=== PATIENT | female | born 1955 | race Caucasian/White ===

== ENCOUNTER 2019-11-21 07:08 | Outpatient (CLI) | payer MEDICARE, SELFPAY ==
--- NOTE | ~2019-11-21 | MM_ITS ---
EXAMINATION: MM screening ady BI w tiara HISTORY: Screening TECHNIQUE: Craniocaudal and mediolateral oblique 3-D tomosynthesis images were obtained and synthetic 2-D images were generated. CAD analysis was submitted and interpreted. COMPARISON: Comparison to multiple prior studies sequentially, with oldest reviewed study dated 01/14. BREAST PARENCHYMAL COMPOSITION: The breasts are heterogeneously dense, which may obscure small masses . FINDINGS: There is no evidence of suspicious mass, calcification, or architectural distortion to sugg est malignancy in either breast. There has been no suspicious interval change. IMPRESSION: 1. No mammographic evidence of malignancy. 2. Recommend routine screening mammography in one year. BI-RADS Category 1: Negative Reviewed, dictated and finalized at location A.
== END 2019-11-21 07:09 | disposition home or self-care (01) ==
LOC: ANHIMG 07:12
PROVIDERS: PCP Internal Medicine; Visit Provider Obstetrics & Gynecology
DX: Z12.31 Encounter for screening mammogram for malignant neoplasm of breast (principal)
CPT/HCPCS: 77063; 77067

== ENCOUNTER 2020-11-26 07:18 | Outpatient (CLI) | payer MEDICARE, SELFPAY ==
--- NOTE | ~2020-11-26 | MM_ITS ---
EXAMINATION: MM screening ady BI w tiara HISTORY: Screening TECHNIQUE: Craniocaudal and mediolateral oblique 3-D tomosynthesis images were obtained and synthetic 2-D images were generated. CAD analysis was submitted and interpreted. COMPARISON: Comparison to multiple prior studies sequentially, with oldest reviewed study dated 12/2016. BREAST PARENCHYMAL COMPOSITION: The breasts are heterogeneously dense, which may obscure small masses . FINDINGS: The left breast is stable without evidence for malignancy. There is a developing asymmetry lateral aspect of the right breast, middle third, on CC view. IMPRESSION: 1. Developing right breast asymmetry lateral aspect of the right breast on CC view. 2. Additional mammographic views and possible breast ultrasound are recommended. BI-RADS Category 0: Incomplete: Needs additional imaging evaluation. Reviewed, dictated and finalized at location A. IMPRESSION: 1. Developing right breast asymmetry lateral aspect of the right breast on CC v iew. 2. Additional mammographic views and possible breast ultrasound are recommended . BI-RADS Category 0: Incomplete: Needs additional imaging evaluation.
== END 2020-11-26 07:19 | disposition home or self-care (01) ==
LOC: ANHIMG 07:21
PROVIDERS: PCP Internal Medicine; Visit Provider Obstetrics & Gynecology
DX: Z12.31 Encounter for screening mammogram for malignant neoplasm of breast (principal); R92.8 Other abnormal and inconclusive findings on diagnostic imaging of breast
CPT/HCPCS: 77063; 77067

== ENCOUNTER 2020-12-03 11:06 | Outpatient (CLI) | payer MEDICARE, SELFPAY ==
--- NOTE | ~2020-12-03 | MM_ITS ---
EXAMINATION: MM diagnostic mammo unilat RT HISTORY: Right breast asymmetry on screening mammogram TECHNIQUE: Additional 3-D tomosynthesis images of the right breast were performed and synthetic 2-D i mages were generated. CAD analysis was submitted and interpreted. COMPARISON: 11/26/2020, 11/21/2019,11/25/2018, 11/18/2018 FINDINGS: There is a return to baseline fibroglandular appearance with spot compression of the right breast in the area questioned on screening mammogram. IMPRESSION: 1. No mammographic evidence of malignancy. 2. Recommend routine screening mammography in one year. BI-RADS Category 1: Negative Reviewed, dictated and finalized at location A.
== END 2020-12-03 11:07 | disposition home or self-care (01) ==
PROVIDERS: PCP Internal Medicine; Visit Provider Obstetrics & Gynecology
DX: R92.8 Other abnormal and inconclusive findings on diagnostic imaging of breast (principal)
CPT/HCPCS: 77065

== ENCOUNTER 2021-02-07 08:43 | Outpatient (CLI) | payer MEDICARE, SELFPAY ==
--- NOTE | ~2021-02-07 | DEXA_ITS ---
Bone Density Report Name: Jessy Valle Age: 65 Sex: Female Ethnicity: White Date of : 1955 Indication: postmenopausal; Referring Provider: Leighton, Cornelio Pimentel Study: Bone densitometry was performed. Exam Date: February 07, 2021 Accession number: [id number] Bone Density: Region BMD T-score Z-score Classification AP Spine (L1-L4) 0.966 -0.7 1.1 Normal Femoral Neck (Left) 0.727 -1.1 0.5 Osteopenia Total Hip (Left) 0.877 -0.5 0.8 Normal Total Hip Bilateral Avg 0.859 -0.7 0.7 Normal Femoral Neck (Right) 0.714 -1.2 0.4 Osteopenia Total Hip (Right) 0.841 -0.8 0.5 Normal World Health Organization criteria for BMD impression classify patients as: Normal (T-score at or above -1.0), Osteopenia (T-score between -1.0 and -2.5), or Osteoporosis (T-score at or below -2.5). 10-year Fracture Risk(1): Major Osteoporotic Fracture 8.7% Hip Fracture 0.8% Reported Risk Factors: [place] (), Neck BMD=0.714, BMI=24.8 (1) FRAX(R) Version 3.08. Fracture probability calculated for an untreated patient. Fracture probability may be lower if the patient has received treatment. Clinical Information Provided by Patient: Patient maximum height was 62.5 Menopause Age: 49 Drinks caffeinated beverages Onset of menses at age 12 Number of children 2 Impression: The patient has low bone mass, based on the Right Femoral Neck T-score. The patient has an estimated ten-year risk of hip fracture of 0.8% and an estimated ten-year risk of major fracture of 8.7%, based on the WHO FRAX algorithm. Discussion: BONE DENSITY IS LOW AT ONE OR MORE SKELETAL SITES. This patient's lowest T-score is low at one or more skeletal sites. It meets the World Health Organization's (WHO) criteria for ?low bone mass? (T-score between -1.0 and -2.5). The patient's 10-year risk of fracture as calculated by FRAX is less than the threshold where pharmacological therapy is recommended by the National Osteoporosis Foundation (NOF). However, all treatment decisions require clinical judgment and consideration of individual patient factors, including patient preferences, comorbidities, previous drug use, risk factors not captured in the FRAX model (e.g., frailty, falls, vitamin D deficiency, increased bone turnover, interval significant decline in bone density) and possible under or overestimation of fracture risk by FRAX. The patient should follow a healthful lifestyle (good nutrition with adequate calcium and vitamin D, and appropriate weight-bearing exercise). Follow-Up: Consider repeating this study in 2 to 3 years to reassess this patient's status, or sooner if there is some new clinical indication. Reported by: REUBEN on 02/07/2021 9:16:00 AM. Reviewed, dictated and finalized at location A.
== END 2021-02-07 08:44 | disposition home or self-care (01) ==
LOC: ANHIMG 08:44
PROVIDERS: PCP Internal Medicine; Visit Provider Internal Medicine
DX: M81.0 Age-related osteoporosis without current pathological fracture (principal); M85.89 Other specified disorders of bone density and structure, multiple sites
CPT/HCPCS: 77080

== ENCOUNTER 2021-11-30 12:59 | Outpatient (CLI) | payer MEDICARE, SELFPAY ==
--- NOTE | ~2021-11-30 | MM_ITS ---
EXAMINATION: MM screening ady BI w tiara HISTORY: Screening mammogram TECHNIQUE: Craniocaudal and mediolateral oblique 3-D tomosynthesis images were obtained and synthetic 2-D images were generated. CAD analysis was submitted and interpreted. COMPARISON: 12/03/2020 diagnostic right mammogram 11/26/2020, 11/21/2019 bilateral screening mammogram examinations BREAST PARENCHYMAL COMPOSITION: The breasts are heterogeneously dense, which may obscure small masses . FINDINGS: Stable fibroglandular asymmetry. Biopsy marker on the left; history of prior benign left br east biopsy. There is no evidence of suspicious mass, calcification, or architectural distortion to s uggest malignancy in either breast. There has been no suspicious interval change. IMPRESSION: 1. No mammographic evidence of malignancy. 2. Recommend routine screening mammography in one year. BI-RADS Category 2: Benign finding(s). Reviewed, dictated and finalized at location A.
== END 2021-11-30 13:00 | disposition home or self-care (01) ==
PROVIDERS: PCP Internal Medicine; Visit Provider Obstetrics & Gynecology
DX: Z12.31 Encounter for screening mammogram for malignant neoplasm of breast (principal)
CPT/HCPCS: 77063; 77067

== ENCOUNTER 2023-03-13 09:08 | Outpatient (CLI) | payer MEDICARE, SELFPAY ==
--- NOTE | ~2023-03-13 | MM_ITS ---
EXAMINATION: MM screening ady BI w tiara HISTORY: Screening mammogram TECHNIQUE: Craniocaudal and mediolateral oblique 3-D tomosynthesis images were obtained and synthetic 2-D images were generated. CAD analysis was submitted and interpreted. COMPARISON: 11/30/2021 bilateral screening mammogram 12/03/2020 diagnostic right mammogram 11/26/2020, 11/21/2019 bilateral screening mammogram examinations BREAST PARENCHYMAL COMPOSITION: The breasts are heterogeneously dense, which may obscure small masses . FINDINGS: Biopsy marker, posterior upper outer left breast; history of prior benign left breast biops y. There is no evidence of suspicious mass, calcification, or architectural distortion to suggest mal ignancy in either breast. There has been no suspicious interval change. IMPRESSION: 1. No mammographic evidence of malignancy. 2. Recommend routine screening mammography in one year. BI-RADS Category 1: Negative Reviewed, dictated and finalized at location A. LOPER ADVISOR
== END 2023-03-13 09:09 | disposition home or self-care (01) ==
PROVIDERS: PCP Internal Medicine; Visit Provider Obstetrics & Gynecology
DX: Z12.31 Encounter for screening mammogram for malignant neoplasm of breast (principal)
CPT/HCPCS: 77063; 77067

== ENCOUNTER 2023-04-06 07:50 | Outpatient (CLI) | payer MEDICARE, SELFPAY | END 2023-04-06 07:51 | disposition home or self-care (01) | LOC: ANHAUDASC 07:51 | PROVIDERS: PCP Internal Medicine; Visit Provider Otolaryngology | DX: H90.3 Sensorineural hearing loss, bilateral (principal) | CPT/HCPCS: 92557; 92567 ==

== ENCOUNTER 2024-09-01 07:57 | Outpatient (CLI) | payer MEDICARE, SELFPAY ==
--- NOTE | ~2024-09-01 | DEXA_ITS ---
Bone Density Report Name: DOUGLAS BANSAL Age: 69 Sex: Female Ethnicity: White Date of : 1955 Indication: postmenopausal; screening for osteoporosis; Referring Provider: LOS*, KELLY Pimentel Study: Bone densitometry was performed. Exam Date: September 01, 2024 Accession number: [id number] Bone Density: Region BMD T-score Z-score Classification AP Spine(L1-L4) 0.961 -0.8 1.3 Normal Femoral Neck (Left) 0.723 -1.1 0.7 Osteopenia Total Hip (Left) 0.902 -0.3 1.2 Normal Femoral Neck (Right) 0.726 -1.1 0.7 Osteopenia Total Hip (Right) 0.933 -0.1 1.4 Normal Total Hip Mean 0.917 -0.2 1.3 Normal World Health Organization criteria for BMD impression classify patients as: Normal (T-score at or above -1.0), Osteopenia (T-score between -1.0 and -2.5), or Osteoporosis (T-score at or below -2.5). 10-year Fracture Risk(1): Major Osteoporotic Fracture 9.0% Hip Fracture 1.0% Reported Risk Factors: [place] (), Neck BMD=0.723, BMI=26.2 (1) FRAX(R) Version 3.08. Fracture probability calculated for an untreated patient. Fracture probability may be lower if the patient has received treatment. Previous Exams: Region Exam Age BMD T-score BMD Change BMD Change Date g/cm2 vs Baseline vs Previous AP Spine (L1-L4) 09/01/2024 69 0.961 -0.8 -0.005 (-0.5%) -0.005 (-0.5%) 02/07/2021 65 0.966 -0.7 Total Hip(Left) 09/01/2024 69 0.902 -0.3 0.025 (2.8%) 0.025 (2.8%) 02/07/2021 65 0.877 -0.5 Total Hip(Right) 09/01/2024 69 0.933 -0.1 0.091 (10.9%)* 0.091 (10.9%)* 02/07/2021 65 0.841 -0.8 *Denotes significance at 95% confidence level, LSC for AP Spine = 0.022 g/cm2, LSC for Total Hip = 0.027 g/cm2 Clinical Information Provided by Patient: Patient maximum height was 62.5 Menopause Age: 49 Drinks caffeinated beverages Onset of menses at age 11 Number of children 2 Impression: The patient has low bone mass, based on the Left Femoral Neck T-score. The patient has an estimated ten-year risk of hip fracture of 1% and an estimated ten-year risk of major fracture of 9%, based on the WHO FRAX algorithm. No significant bone loss was observed. Discussion: BONE DENSITY IS LOW AT ONE OR MORE SKELETAL SITES. This patient's lowest T-score is low at one or more skeletal sites. It meets the World Health Organization's (WHO) criteria for ?low bone mass? (T-score between -1.0 and -2.5). The patient's 10-year risk of fracture as calculated by FRAX is less than the threshold where pharmacological therapy is recommended by the National Osteoporosis Foundation (NOF). However, all treatment decisions require clinical judgment and consideration of individual patient factors, including patient preferences, comorbidities, previous drug use, risk factors not captured in the FRAX model (e.g., frailty, falls, vitamin D deficiency, increased bone turnover, interval significant decline in bone density) and possible under or overestimation of fracture risk by FRAX. The patient should follow a healthful lifestyle (good nutrition with adequate calcium and vitamin D, and appropriate weight-bearing exercise). Follow-Up: Consider repeating this study in 2 to 3 years to reassess this patient's status, or sooner if there is some new clinical indication. Reported by: NICOLE on 09/01/2024 8:33:00 AM. Reviewed, dictated and finalized at location A.
--- OUTSIDE RECORDS SUMMARY | 2024-09-01 08:02 | XMS_ITS | Encounter Summary ---
Author Organization [facility] Health Address [address] [place] [address] [place] [address] Care Team Providers Care Chimney Mechanic Name Role Phone Cornelio Massey MD Primary Care Provider [phone] Encounter Details Date Type Department Care Team (Late st Contact Info) Description 03/22/2020 [facility] Unknown, Provider Social History Tobacco Use Types Packs/Day Years Used Date Smoking Tobacco: Never Assessed Comments Unknown Sex and Gender Information Value Date Recorded Sex Assigned at Not on file Legal Sex Female 5:01 PM CDT Gender Identity Not on file Sexual Orientation Not on file documented as of this encounter Plan of Treatment Not on file documented as of this encounter Visit Diagnoses Not on filedocumented in this encounter Care Teams Chimney Mechanic Relationship Specialty Start Date End Date Cornelio Massey MD [address] [place] [phone] PCP - General Internal Medicine 02/19/20 documented as of this encounter
--- OUTSIDE RECORDS SUMMARY | 2024-09-01 08:02 | XMS_ITS | Clinical Summary ---
Author Organization [facility] [address] Address [address] [place] [address] Care Team Providers Care Knuckler Name Role Phone Cornelio Massey MD Primary Care Provider Allergies No known active allergies Medications pravastatin (PRAVACHOL) 40 mg tablet Take 1 tablet (40 mg total) by mouth daily Active lisinopriL (PRINIVIL,ZESTR IL) 20 mg tablet Take 1 tablet (20 mg total) by mouth daily Active meloxicam (MOBIC) 7.5 mg tablet Take 1 tablet (7.5 mg total) by mouth daily Active calcium carbonate-vitam in D3 600 mg (1,500 mg)-800 unit tablet,chewable Take 600 mg by mouth daily Active blood glucose diagnostic (Accu-Chek Guide test strips) strip USE TO TEST BLOOD SUGAR TWO TIMES DAILY 200 strip 1 4 Active NovoLOG 100 unit/mL vial for injectionIndica tions:Type 2 diabetes mellitus with other specified complication, without long-term current use of insulin (HCC) INJECT 60 UNITS VIA PUMP DAILY Diagnosis code E 10.9 50 mL 3 4 Active insulin glargine 100 unit/mL (3 mL) pen for injection Inject 14 Units under the skin daily 15 mL 4 Active Additional Information Patient taking differently:14 Units subcutaneous Daily,Use for possible pump failure as back up, Reported on 04/29/2024 glucagon (GlucaGen HypoKit) 1 mg kit Diagnosis code E10.9 for severe hypoglycemia 1 kit 3 4 Active levothyroxine (SYNTHROID) 50 mcg tablet TAKE 1 TABLET(50 MCG) BY MOUTH INSURANCE DEFENSE ATTORNEY BEFORE BREAKFAST 90 tablet 3 5 Active Active Problems Problem Noted Date Diagnosed Date Type 1 diabetes mellitus without complication Assessment & Plan (07/29/2024 12:50 PM CDT): A1c at goal on current therapy. I re-emphasized accurate and timely bolusing. Continue routine eye exams. No neuropathy symptoms. Labs due in October. Assessment & Plan (04/29/2024 10:41 AM FREE LANCE MODEL): A1c at goal on current therapy. Continue ophthalmology follow up. She denies neuropathy symptoms. Assessment & Plan (01/25/2024 10:30 AM CDT): A1c is at goal, but she is having some hyperglycemia after lunch and dinner. I tightened her ICR from 5.0 to 4.7 from 10:30AM to midnight. She will meet with our CDE today. Eye exams are current. She reports no neuropathy. Assessment & Plan (11/05/2023 4:13 PM CDT): A1c at goal on current therapy. Labs today. Continue routine eye exams. Assessment & Plan (07/31/2023 11:29 AM CDT): At goal on current therapy. Assessment & Plan (04/27/2023 9:07 AM FREE LANCE MODEL): A1c at goal on current therapy. Assessment & Plan (10/19/2022 9:46 AM CDT): A1c at goal on current therapy. Labs due today. Assessment & Plan (07/24/2022 12:57 PM CDT): A1c above goal. Tighten ICR with dinner from 6.0 to 5.5. Set temp target with exercise. She met with our CDE today. Assessment & Plan (04/18/2022 10:24 AM FREE LANCE MODEL): A1c slightly above goal, but review of recent glucoses on DEXCOM show generally normal blood sugars throughout the day with TIR well above goal and predicted A1c of 6.7%. No changes to pump settings today. She will meet with our CDE today. Eye exams are current. Labs UTD. Assessment & Plan (10/04/2021 11:34 AM CDT): A1c near goal. She discussed strategies to avoid hypoglycemia with exercise with our CDE today. She will set her temp target earlier in the day and undercount her carbs a bit when she boluses prior to exercise. Keep same pump settings. Labs due today. Eye exams are current. Assessment & Plan (06/28/2021 6:37 PM CDT): A1c at goal on current therapy. Labs due next visit. Recommend yearly eye exams. Assessment & Plan (03/15/2021 10:31 AM FREE LANCE MODEL): A1c near goal. CGM shows TIR above 70%. I would not make any changes to her pump settings today. She will meet with our CDE today to discuss strategies to avoid hypoglycemia with and shortly after exercise. I recommended trying an Extend Bar. Labs are up to date. Eye exams current. Hypothyroidism, adult 06/11/2020 Essential hypertension, benign 06/11/2020 Assessment & Plan (07/29/2024 9:57 AM CDT): At goal on current therapy. Assessment & Plan (04/29/2024 9:51 AM FREE LANCE MODEL): At goal on current therapy. Assessment & Plan (01/25/2024 10:28 AM CDT): At goal on current therapy. Assessment & Plan (11/05/2023 4:13 PM CDT): Mildly elevated today. Will monitor. Assessment & Plan (07/31/2023 11:32 AM CDT): At goal on current therapy. Assessment & Plan (04/27/2023 9:06 AM FREE LANCE MODEL): At goal on current therapy. Assessment & Plan (01/25/2023 2:28 PM CDT): At goal on current therapy. Assessment & Plan (10/19/2022 9:46 AM CDT): At goal on current therapy. Assessment & Plan (07/24/2022 12:56 PM CDT): At goal on current therapy. Assessment & Plan (04/18/2022 10:23 AM FREE LANCE MODEL): At goal on current therapy. Assessment & Plan (10/04/2021 11:33 AM CDT): At goal on current therapy. Assessment & Plan (06/28/2021 6:37 PM CDT): At goal on current therapy. Assessment & Plan (03/15/2021 10:30 AM FREE LANCE MODEL): Blood pressure normal today. Hyperlipidemia 06/11/2020 Assessment & Plan (07/29/2024 9:56 AM CDT): At goal on current therapy. Assessment & Plan (04/29/2024 10:41 AM FREE LANCE MODEL): Due for lipids. Continue pravastatin. Assessment & Plan (01/25/2024 10:28 AM CDT): At goal on current therapy. Assessment & Plan (11/05/2023 4:13 PM CDT): At goal on current therapy. Assessment & Plan (07/31/2023 11:30 AM CDT): At goal on current therapy. Assessment & Plan (04/27/2023 9:06 AM FREE LANCE MODEL): Check lipids. Continue pravastatin. Assessment & Plan (01/25/2023 2:28 PM CDT): At goal on current therapy. Assessment & Plan (10/19/2022 9:46 AM CDT): At goal on current therapy. Assessment & Plan (07/24/2022 12:56 PM CDT): Continue statin. Assessment & Plan (04/18/2022 10:23 AM FREE LANCE MODEL): At goal on current therapy. Assessment & Plan (10/04/2021 11:33 AM CDT): At goal on current therapy. Assessment & Plan (06/28/2021 6:37 PM CDT): At goal on current therapy. Assessment & Plan (03/15/2021 10:30 AM FREE LANCE MODEL): LDL slightly above goal. Recommend diet and exercise. If LDL still above 100 at next visit, would change pravastatin 40 mg daily to atorvastatin 40 mg daily. Abnormal mammogram 02/05/2015 Type 2 diabetes mellitus 08/30/2013 Overview (07/19/2016): DMII WO CMP UNCNTRLD Assessment & Plan (01/25/2023 2:28 PM CDT): A1c near goal. No changes to pump settings. She will try Fiasp in her pump instead of Novolog to see if this acts a little faster. Encounters Date Type Department Care Team Description 07/29/2024 9:45 AM CDT Office Visit [facility] [address] [place] [phone] Dallas Lee MD Type 1 diabetes mellitus without complication (HCC) (Primary Dx); Essential hypertension, benign; Mixed hyperlipidemia 07/29/2024 9:00 AM CDT Clinical Support [facility] [address] [place] [phone] Type 1 diabetes mellitus without complication (HCC) from Last 3 Months Immunizations Immunization Administration Dates Next Due Flucelvax Influenza Quad 01/14/2019 Influenza, Quadrivalent, Hig h Dose, Preservative Free, Intrr 12/12/2019 Influenza, Quadrivalent, Spl it, Intramuscular 12/30/2014 Influenza, Quadrivalent, Spl it, Preservative Free, Intramuscular 12/07/2017,12/21/2016,01/14/2016 Influenza, Trivalent, IM (MDV) 02/07/2013 Pneumococcal Conjugate PCV 13 12/12/2019 ZOSTER LIVE 12/30/2014 Medical History Medical History Date Comments Hx Other Medical No surgery Type 2 diabetes mellitus (HCC) D iabetes type 2 Family History Medical History Relation Name Comments Diabetes type II Mother Diabetes -T ype 2; Melanoma Mother Family history of malignant melanoma - (Added by TW Conv) Relation Name Status Comments Mother Social History Tobacco Use Types Packs/Day Years Used Date Smoking Tobacco: Never Tobacco Cessation:Counseling Given: Not Answered Alcohol Use Standard Drinks/Week Comments Yes 0 (1 standard drink = 0.6 oz pur e alcohol) PHQ-2 Answer Date Recorded PHQ-2 Total Score (If total score is 3 or more points, staff should administer the PHQ-9) 0 09/02/2020 Comments Unknown Sex and Gender Information Value Date Recorded Sex Assigned at Not on file Legal Sex Female 1:42 AM FREE LANCE MODEL Gender Identity Female 10/12/2022 7:36 AM CDT Sexual Orientation Not on file Obstetrics History Last Filed Vital Signs Vital Sign Reading Time Taken Comments Blood Pressure 127/79 07/29/2024 9:32 AM CDT Pulse 71 07/29/2024 9:32 AM CDT Temperature - - Respiratory Rate - - Oxygen Saturation 98% 07/29/2024 9:32 AM CDT Inhaled Oxygen Concentration - - Weight 67.1 kg (148 lb) 07/29/2024 9:32 AM CDT Height 162.6 cm (5' 4 ) 07/29/2024 9:32 AM CDT Body Mass Index 25.4 07/29/2024 9:32 AM CDT Plan of Treatment Health Maintenance Due Date Last Done Comments Colon Cancer Screening-Colonoscopy 1955 Foot Exam 1955 Osteoporosis Screening-Bone Density Scan 1955 Dilated Eye Exam 1964 DTaP/Tdap/Td Vaccine (1 - Tdap) 1965 Hepatitis B Screening 1972 Zoster Vaccine (2 of 3) 02/24/2015 12/30/2014 Depression Screening 09/02/2021 09/02/2020 Fall Risk Assessment 09/02/2021 09/02/2020 Well Visit 65+ 09/02/2021 09/02/2020 Breast Cancer Screening-Mammogram 03/13/2024 023 Albumin Creatinine Ratio, Urine 11/06/2024 11/07/2023, 10/19/2022, 10/04/2021 TSH Level 11/06/2024 11/07/2023, 07/0 09/2022, 10/04/2021, Additional history exists eGFR 11/06/2024 11/07/2023, 07/0 09/2022, 10/04/2021, Additional history exists Influenza Vaccine (Season Ended) 2024 12/29/2022, 12/12/2019, 01/14/2019, Additional history exists Hemoglobin A1C 01/28/2025 07/29/2024, 04/16, 01/25/2024, Additional history exists Lipid Panel 05/06/2025 05/06/2024, 04/16, 04/18/2022, Additional history exists Pneumococcal vaccine 65+ Completed 07/11/2022, 11/15 Hepatitis C Screening Discontinued Procedures Procedure Name Priority Date/Time Associated Diagnosis Comments POCT HEMOGLOBIN A1C Routine 07/29/2024 1 0:00 AM CDT Type 1 diabetes mellitus without complication (HCC) LIPID PANEL Routine 05/06/2024 9:12 AM FREE LANCE MODEL Mixed hyperlipidemia COMPREHENSIVE METABOLIC PANEL Routine 11/07/2023 11:01 AM CDT Type 1 diabetes mellitus without complication (HCC) ALBUMIN CREATININE RATIO, URINE Routine 11/07/2023 11:01 AM CDT Type 1 diabetes mellitus without complication (HCC) THYROID FUNCTION CASCADE Routine 11/07/2023 11:01 AM CDT Type 1 diabetes mellitus without complication (HCC) from Last 3 Months or Most Recently Relevant to Health Maintenance Results * POCT hemoglobin A1c (07/29/2024 10:00 AM CDT) Hemoglobin A1C, POC 6.9 4.0 - 5.6 % Capillary blood 07/29/2024 1 0:00 AM CDT Dallas Lee MD POINT OF CARE TEST ORDE RABJOSH Final Result * (ABNORMAL) Lipid panel (05/06/2024 9:12 AM FREE LANCE MODEL) Pathologist [facility] Cholesterol 200(H) 100 - 199 mg/dL [facility] - 01 Triglycerides 52 0 - 149 mg/dL [facility] - 01 HDL Cholesterol 104 >39 mg/dL [facility] - 01 VLDL 10 5 - 40 mg/dL [facility] - 01 LDL, calculated 86 0 - 99 mg/dL [facility] - 01 Blood 05/06/2024 9:12 AM FREE LANCE MODEL 05/06/2024 Narrative [facility] - 05/07/2024 3:35 AM FREE LANCE MODEL Performed at: 01 - [facility] [place] [id number] Geophysics Teacher: Kevin Villareal PhD, Phone: [phone] Dallas Lee MD LAB BLOOD ORDERABLES Fi nal Result [facility] - 01 * Thyroid Function Walsh (11/07/2023 11:01 AM CDT) TSH 0.561 0.450 - 4.500 uIU/mL [facility] - 01 Comment: No apparent thyroid disorder. Additional testing not indicated. In rare instances, Secondary Hypothyroidism as well as Subclinical Hypothyroidism have been reported in some patients with normal TSH values. Blood 11/07/2023 11:0 1 AM CDT 11/07/2023 Narrative [facility] - 11/08/2023 12:12 PM CDT Performed at: [address] [id number] Geophysics Teacher: Kevin Villareal PhD, Phone: [phone] Dallas Lee MD LAB BLOOD ORDERABLES Fi nal Result Performing Organization Address [facility]/ZIP Co de Phone Number [facility] - * Albumin Creatinine Ratio, Urine (11/07/2023 11:01 AM CDT) Creatinine ur 215.6 Not Estab. mg/dL [facility] - 01 Microalbumin, ur 14.8 Not Estab. ug/mL [facility] - 01 Microalbumin/cre at ratio 7 0 - 29 mg/g creat [facility] - 01 Comment: Normal: 0 - 29 Moderately increased: 30 - 300 Severely increased: >300 Urine 11/07/2023 11:0 1 AM CDT 11/07/2023 Narrative [facility] - 11/08/2023 12:12 PM CDT Performed at: [address] [id number] Geophysics Teacher: Kevin Villareal PhD, Phone: [phone] Dallas Lee MD LAB URINE ORDERABLES Fi nal Result Performing Organization Address [facility] Co de Phone Number [facility] - * (ABNORMAL) Comprehensive metabolic panel (11/07/2023 11:01 AM CDT) Glucose 107(H) 70 - 99 mg/dL [facility] - 01 BUN 15 8 - 27 mg/dL [facility] - 01 Creatinine, Serum 0.84 0.57 - 1.00 mg/dL [facility] - 01 eGFR 75 >59 mL/min/1.7 3 [facility] - 01 BUN/creat ratio 18 12 - 28 [facility] - 01 Sodium 140 134 - 144 mmol/L [facility] - 01 Potassium, sr 4.7 3.5 - 5.2 mmol/L [facility] - 01 Chloride 102 96 - 106 mmol/L [facility] - 01 CO2 27 20 - 29 mmol/L [facility] - 01 Calcium 9.6 8.7 - 10.3 mg/dL [facility] - 01 Protein, sr 6.5 6.0 - 8.5 g/dL [facility] - 01 Albumin 4.2 3.9 - 4.9 g/dL [facility] - 01 Globulin, Total 2.3 1.5 - 4.5 g/dL [facility] - 01 Bilirubin, Total 1.2 0.0 - 1.2 mg/dL [facility] - 01 Alk phos 73 44 - 121 IU/L [facility] - 01 AST 18 0 - 40 IU/L [facility] - 01 ALT 16 0 - 32 IU/L [facility] - 01 Blood 11/07/2023 11:0 1 AM CDT 11/07/2023 Narrative [facility] - 11/08/2023 12:12 PM CDT Performed at: - [address] [id number] Geophysics Teacher: Kevin Villareal PhD, Phone: [phone] Dallas Lee MD LAB BLOOD ORDERABLES nal Result [facility] - 01 from Last 3 Months or Most Recently Relevant to Health Maintenance Insurance MEDICARE [facility] Address: [address] [phone] [facility] MEDICARE SUPPLEMENT Care Teams Knuckler Relationship Specialty Start Date End Date Cornelio Massey MD [address] [facility] [place] [address] PCP - General Internal Medicine 10/19/22
--- OUTSIDE RECORDS SUMMARY | 2024-09-01 08:02 | XMS_ITS | Encounter Summary ---
Author Organization [facility] Address [address] [facility] [place] [address] Care Team Providers Care Vice President Of Business Development Name Role Phone Cornelio Massey MD Primary Care Provider [phone] Encounter Details Date Type Department Care Team (Late st Contact Info) Description 05/22/2023 Lab Requisition [facility] - DermPath Lab [address] [facility], [place] [address] Kim Hodge DO [address] [facility] 3 [place] [address] Social History Tobacco Use Types Packs/Day Years Used Date Smoking Tobacco: Never Assessed Comments Unknown Sex and Gender Information Value Date Recorded Sex Assigned at Not on file Legal Sex Female 5:01 PM CDT Gender Identity Not on file Sexual Orientation Not on file documented as of this encounter Plan of Treatment Not on file documented as of this encounter Procedures Procedure Name Priority Date/Time Associated Diagnosis Comments DERMATOPATHOLOGY Routine 05/22/2023 10:0 6 AM TORTILLA MAKER documented in this encounter Results * DERMATOPATHOLOGY (05/22/2023 10:06 AM TORTILLA MAKER) Case Report Dermatopathology Report Case: [id number] Authorizing Provider: Kim Hodge DO Collected: 05/22/2023 10:06 AM Ordering Location: [facility] DermPath Lab Received: 05/23/2023 08:22 AM Pathologist: Rakesh Zacarias MD Specimen: Skin, right ant LE 5:09 PM TORTILLA MAKER DERMATOPATHOLOGY LABORATORY Final Diagnosis Specimen A. SKIN, right ant LE: SOLAR LENTIGO (L81.4) 4 5:09 PM [facility] DERMATOPATHOLOGY LABORATORY at [address] TORTILLA MAKER Clinical History Nevus R/O atypia 4 5:09 PM [facility] DERMATOPATHOLOGY LABORATORY Gross Description Specimen A: Received is one formalin filled container labeled with the patient's name and designated right ant LE. The specimen consists of a shave biopsy measuring 5x5x1 mm. Jar 0. 4 5:09 PM [facility] DERMATOPATHOLOGY LABORATORY Microscopic Description Specimen A. SKIN, right ant LE: There is orthokeratosis. There is a slight increase in epidermal thickness with lentiginous buds of hyperpigmented keratinocytes. The number of melanocytes is only mildly increased. In the dermis, there is basophilic degeneration of elastic fibers. 5:09 PM [facility] DERMATOPATHOLOGY LABORATORY Disclaimer An external and internal positive and negative controls are appropriate for the histochemical, immunohistochemical and immunofluorescence stain(s) in this case (if any), except where stated explicitly. The performance characteristics of the stain(s) cited in this report were developed and its performance characteristic determined by the Dermatopathology Laboratory at [facility], directed by Dr. Johnathan Zacarias. These tests need not be, and therefore are not, approved by the [place] Food and Drug Administration. The tests are used for clinical purposes. Billing Codes Specimen Charges Stain Charges 56348 1 4 5:09 PM [facility] DERMATOPATHOLOGY LABORATORY Embedded Images 4 5:09 PM [facility] DERMATOPATHOLOGY LABORATORY Pathology/Cytolo gy TISSUE SPECIMEN FROM SKIN / Unknown 05/22/2023 10:06 AM TORTILLA MAKER 05/23/2023 8:22 AM TORTILLA MAKER us Kim Hodge DO LAB - PATHOLOGY/CYTOLOGY ORDERABLES Final Result DERMATOPATHOLOGY LABORATORY [facility] - Department of Dermatology [address], [address] [phone] documented in this encounter Visit Diagnoses Not on filedocumented in this encounter Care Teams Vice President Of Business Development Relationship Specialty Start Date End Date Cornelio Massey MD [address] [place] [address] PCP - General Internal Medicine 02/19/20 documented as of this encounter
--- OUTSIDE RECORDS SUMMARY | 2024-09-01 08:02 | XMS_ITS | Referral Summary ---
Author Organization [facility] [address] Address [address] [place] [address] Care Team Providers Care Er Tech Name Role Phone Cornelio Massey MD Primary Care Provider Encounters Date Type Department Care Team Description 07/29/2024 9:00 AM CDT Clinical Support [facility] [address] [place] [phone] Type 1 diabetes mellitus without complication (HCC) 07/29/2024 9:45 AM CDT Office Visit [facility] [address] [place] [phone] Dallas Lee MD Type 1 diabetes mellitus without complication (HCC) (Primary Dx); Essential hypertension, benign; Mixed hyperlipidemia from Last 3 Months Allergies No known active allergies Medications pravastatin [...] tablet TAKE 1 TABLET(50 MCG) BY MOUTH BAG LOADER MACHINE OPERATOR BEFORE BREAKFAST 90 tablet 3 5 Active Active Problems Problem Noted Date Diagnosed Date Type 1 diabetes mellitus without complication Assessment & Plan (07/29/2024 12:50 PM CDT): A1c at goal on current therapy. I re-emphasized accurate and timely bolusing. Continue routine eye exams. No neuropathy symptoms. Labs due in October. Assessment & Plan (04/29/2024 10:41 AM CLOUD SUBJECT MATTER EXPERT): A1c at goal on current therapy. Continue [...] therapy. Assessment & Plan (04/27/2023 9:07 AM CLOUD SUBJECT MATTER EXPERT): A1c at goal on current therapy. Assessment & Plan (10/19/2022 9:46 AM CDT): A1c at goal on current therapy. Labs due today. Assessment & Plan (07/24/2022 12:57 PM CDT): A1c above goal. Tighten ICR with dinner from 6.0 to 5.5. Set temp target with exercise. She met with our CDE today. Assessment & Plan (04/18/2022 10:24 AM CLOUD SUBJECT MATTER EXPERT): A1c slightly above goal, but review of [...] exams. Assessment & Plan (03/15/2021 10:31 AM CLOUD SUBJECT MATTER EXPERT): A1c near goal. CGM shows TIR above [...] therapy. Assessment & Plan (04/29/2024 9:51 AM CLOUD SUBJECT MATTER EXPERT): At goal on current therapy. Assessment & Plan (01/25/2024 10:28 AM CDT): At goal on current therapy. Assessment & Plan (11/05/2023 4:13 PM CDT): Mildly elevated today. Will monitor. Assessment & Plan (07/31/2023 11:32 AM CDT): At goal on current therapy. Assessment & Plan (04/27/2023 9:06 AM CLOUD SUBJECT MATTER EXPERT): At goal on current therapy. Assessment & Plan (01/25/2023 2:28 PM CDT): At goal on current therapy. Assessment & Plan (10/19/2022 9:46 AM CDT): At goal on current therapy. Assessment & Plan (07/24/2022 12:56 PM CDT): At goal on current therapy. Assessment & Plan (04/18/2022 10:23 AM CLOUD SUBJECT MATTER EXPERT): At goal on current therapy. Assessment & Plan (10/04/2021 11:33 AM CDT): At goal on current therapy. Assessment & Plan (06/28/2021 6:37 PM CDT): At goal on current therapy. Assessment & Plan (03/15/2021 10:30 AM CLOUD SUBJECT MATTER EXPERT): Blood pressure normal today. Hyperlipidemia 06/11/2020 Assessment & Plan (07/29/2024 9:56 AM CDT): At goal on current therapy. Assessment & Plan (04/29/2024 10:41 AM CLOUD SUBJECT MATTER EXPERT): Due for lipids. Continue pravastatin. Assessment & Plan (01/25/2024 10:28 AM CDT): At goal on current therapy. Assessment & Plan (11/05/2023 4:13 PM CDT): At goal on current therapy. Assessment & Plan (07/31/2023 11:30 AM CDT): At goal on current therapy. Assessment & Plan (04/27/2023 9:06 AM CLOUD SUBJECT MATTER EXPERT): Check lipids. Continue pravastatin. Assessment & Plan (01/25/2023 2:28 PM CDT): At goal on current therapy. Assessment & Plan (10/19/2022 9:46 AM CDT): At goal on current therapy. Assessment & Plan (07/24/2022 12:56 PM CDT): Continue statin. Assessment & Plan (04/18/2022 10:23 AM CLOUD SUBJECT MATTER EXPERT): At goal on current therapy. Assessment & Plan (10/04/2021 11:33 AM CDT): At goal on current therapy. Assessment & Plan (06/28/2021 6:37 PM CDT): At goal on current therapy. Assessment & Plan (03/15/2021 10:30 AM CLOUD SUBJECT MATTER EXPERT): LDL slightly above goal. Recommend diet and [...] see if this acts a little faster. Immunizations Immunization Administration Dates Next Due Flucelvax Influenza Quad 01/14/2019 Influenza, Quadrivalent, Hig h Dose, Preservative Free, Intrr 12/12/2019 Influenza, Quadrivalent, Spl it, Intramuscular 12/30/2014 Influenza, Quadrivalent, Spl it, Preservative Free, Intramuscular 12/07/2017,12/21/2016,01/14/2016 Influenza, Trivalent, IM (MDV) 02/07/2013 Pneumococcal Conjugate PCV 13 12/12/2019 ZOSTER LIVE 12/30/2014 Social History Tobacco Use Types Packs/Day Years [...] on file Legal Sex Female 1:42 AM CLOUD SUBJECT MATTER EXPERT Gender Identity Female 10/12/2022 7:36 AM CDT Sexual Orientation Not on file Last Filed Vital Signs Vital Sign Reading [...] 07/29/2024 9:32 AM CDT Plan of Treatment Not on file Procedures Procedure Name Priority Date/Time Associated Diagnosis Comments POCT HEMOGLOBIN A1C Routine 07/29/2024 1 0:00 AM CDT Type 1 diabetes mellitus without complication (HCC) LIPID PANEL Routine 05/06/2024 9:12 AM CLOUD SUBJECT MATTER EXPERT Mixed hyperlipidemia COMPREHENSIVE METABOLIC PANEL Routine 11/07/2023 [...] Capillary blood 07/29/2024 1 0:00 AM CDT us Dallas Lee MD POINT OF CARE TEST ORDE RABLES Final Result * (ABNORMAL) Lipid panel (05/06/2024 9:12 AM CLOUD SUBJECT MATTER EXPERT) Cholesterol 200(H) 100 - 199 mg/dL [facility] - 01 Triglycerides 52 0 - 149 mg/dL [facility] - 01 HDL Cholesterol 104 >39 mg/dL [facility] - 01 VLDL 10 5 - 40 mg/dL [facility] - 01 LDL, calculated 86 0 - 99 mg/dL [facility] - 01 Blood 05/06/2024 9:12 AM CLOUD SUBJECT MATTER EXPERT 05/06/2024 Narrative [facility] - 05/07/2024 3:35 AM CLOUD SUBJECT MATTER EXPERT Performed at: 01 - [facility] [address] [id number] [place] Supervisor: Kevin Villareal PhD, Phone: [phone] us Dallas Lee MD LAB BLOOD ORDERABLES Fi nal Result [facility] - 01 * Thyroid Function [place] (11/07/2023 11:01 AM CDT) TSH 0.561 0.450 - 4.500 uIU/mL [facility] - 01 Comment: No apparent thyroid disorder. Additional testing not indicated. In rare instances, Secondary Hypothyroidism as well as Subclinical Hypothyroidism have been reported in some patients with normal TSH values. Blood 11/07/2023 11:0 1 AM CDT 11/07/2023 Narrative [facility] - 11/08/2023 12:12 PM CDT Performed at: [address] [place] [id number] [place] Supervisor: Kevin Villareal PhD, Phone: [phone] Dallas Lee MD LAB BLOOD ORDERABLES Fi nal Result Performing Organization Address [facility] Co de Phone Number [facility] - 01 * Albumin Creatinine Ratio, Urine (11/07/2023 11:01 [...] - 11/08/2023 12:12 PM CDT Performed at: [address] [place] [id number] [place] Supervisor: Kevin Villareal PhD, Phone: [phone] Dallas Lee MD LAB URINE ORDERABLES Fi nal Result Performing Organization Address [facility] Co de Phone Number [facility] - 01 * (ABNORMAL) Comprehensive metabolic panel (11/07/2023 11:01 [...] 11/08/2023 12:12 PM CDT Performed at: - [facility] [id number] [place] Supervisor: Kevin Villareal PhD, Phone: [phone] Dallas Lee MD LAB BLOOD ORDERABLES nal Result [facility] - 01 from Last 3 Months or Most Recently Relevant to Health Maintenance Insurance MEDICARE [facility] MEDICARE SUPPLEMENT Care Teams Er Tech Relationship Specialty Start Date End Date Cornelio Massey MD [address] [facility] [address] [place] [address] PCP - General Internal Medicine 10/19/22
--- OUTSIDE RECORDS SUMMARY | 2024-09-01 08:02 | XMS_ITS | Encounter Summary ---
Author Organization [facility] Address [facility] [facility] [place] [address] Care Team Providers Care Sales Planning Coordinator Name Role Phone Cornelio Massey MD Primary Care Provider [phone] Encounter Details Date Type Department Care Team (Late st Contact Info) Description 05/10/2020 [facility] Unknown, [...] on filedocumented in this encounter Care Teams Sales Planning Coordinator Relationship Specialty Start Date End Date Cornelio Massey MD [address] [place] [phone] PCP - General Internal Medicine 02/19/20 documented as of this encounter
--- OUTSIDE RECORDS SUMMARY | 2024-09-01 08:02 | XMS_ITS | Encounter Summary ---
Author Organization [facility] Address [address] [facility] [place] [address] Care Team Providers Care Instructional Design Specialist Name Role Phone Cornelio Massey MD Primary Care Provider [phone] Encounter Details Date Type Department Care Team (Late st Contact Info) Description 05/27/2024 Lab Requisition [facility] - DermPath Lab [address] [facility] [place] [address] Kim Hodge DO [address] [facility] 3 [place] [address] Social History Tobacco Use Types Packs/Day Years [...] Priority Date/Time Associated Diagnosis Comments DERMATOPATHOLOGY Routine 05/27/2024 9:50 AM ICE SCULPTOR documented in this encounter Results * DERMATOPATHOLOGY (05/27/2024 9:50 AM ICE SCULPTOR) Case Report Dermatopathology Report Case: [id number] Authorizing Provider: Kim Hodge DO Collected: 05/27/2024 09:50 AM Ordering Location: [facility] - Received: 05/28/2024 10:15 AM DermPath Lab Pathologist: Taylor Kingsley MD Specimen: Skin, left forearm 12:15 PM ICE SCULPTOR DERMATOPATHOLOGY LABORATORY Final Diagnosis Specimen A. SKIN, left forearm: SOLAR LENTIGO (L81.4) 12:15 PM [facility] DERMATOPATHOLOGY LABORATORY at [address] ICE SCULPTOR Clinical History Nevus R/O MM 12:15 PM [facility] DERMATOPATHOLOGY LABORATORY Gross Description Specimen A: Received is one formalin filled container labeled with the patient's name and designated left forearm. The specimen consists of a shave biopsy measuring 6x5x1 mm. Jar 0. 12:15 PM [facility] DERMATOPATHOLOGY LABORATORY Microscopic Description Specimen A. SKIN, left forearm: There is orthokeratosis. There is a slight increase in epidermal thickness with lentiginous buds of hyperpigmented keratinocytes. The number of melanocytes is only mildly increased. In the dermis, there is basophilic degeneration of elastic fibers. 12:15 PM [facility] DERMATOPATHOLOGY LABORATORY Disclaimer An external and internal positive and negative controls are appropriate for the histochemical, immunohistochemical and immunofluorescence stain(s) in this case (if any), except where stated explicitly. The performance characteristics of the stain(s) cited in this report were developed and its performance characteristic determined by the Dermatopathology Laboratory at [facility], directed by Dr. Johnathan Zacarias. These tests need not be, and therefore are not, approved by the [place] Food and Drug Administration. The tests are used for clinical purposes. Billing Codes Specimen Charges Stain Charges 10048 1 12:15 PM [facility] DERMATOPATHOLOGY LABORATORY Embedded Images 12:15 PM [facility] DERMATOPATHOLOGY LABORATORY Pathology/Cytolo gy TISSUE SPECIMEN FROM SKIN / Unknown 05/27/2024 9:50 AM ICE SCULPTOR 05/28/2024 10:15 AM [facility] us Kim Hodge DO LAB - PATHOLOGY/CYTOLOGY ORDERABLES Final Result DERMATOPATHOLOGY LABORATORY [facility] - Department of Dermatology [address], [address] [phone] documented in this encounter Visit Diagnoses Not on filedocumented in this encounter Care Teams Instructional Design Specialist Relationship Specialty Start Date End Date Cornelio Massey MD [facility] [place] [address] PCP - General Internal Medicine 02/19/20 documented as of this encounter
--- OUTSIDE RECORDS SUMMARY | 2024-09-01 08:02 | XMS_ITS | Clinical Summary ---
Author Organization [facility] Address [facility] [facility] [place] [address] Care Team Providers Care Drawing Operator Name Role Phone Cornelio Massey MD Primary Care Provider [phone] Source Comments [facility],non-owned Affiliates and Associated Physician Practices is amultiple site organization consisting of ambulatory clinics and hospital sitesin [place], [place], [place] and [place]. This disclosure is being madepursuant to the Care Everywhere program and may not contain all information available regarding this patient. Last updated 18.[facility] Allergies No known active allergies Medications * Be aware that medications may not be up to date on this document. Alwaysverify current medications with the patient. pravastatin (PRAVACHOL) 40 MG tablet TK 1 T PO QPM 0 Active levothyroxine (SYNTHROID) 50 MCG tablet Take 50 mcg by mouth once daily 0 Active meloxicam (MOBIC) 7.5 MG tablet meloxicam 7.5 mg tablet TAKE 1 TABLET BY MOUTH DAILY Active lisinopril (PRINIVIL; ZESTRIL) 20 MG tablet TK 1 T PO QD 0 Active insulin lispro (HUMALOG) 100 UNIT/ML vial Humalog U-100 Insulin 100 unit/mL subcutaneous solution 4 units before meals Active NOVOLOG vial INJECT 60 UNITS D 0 Active Active Problems No known active problems Social History Tobacco Use Types Packs/Day Years Used Date Smoking Tobacco: Never Assessed Comments Unknown Sex and Gender Information Value Date Recorded Sex Assigned at Not on file Legal Sex Female 5:01 PM CDT Gender Identity Not on file Sexual Orientation Not on file Last Filed Vital Signs Vital Sign Reading Time Taken Comments Blood Pressure - - Pulse - - Temperature - - Respiratory Rate - - Oxygen Saturation - - Inhaled Oxygen Concentration - - Weight 66.7 kg (147 lb) 02/19/2020 11:06 AM SUPPLIER SPECIALIST Height 157.5 cm (5' 2 ) 02/19/2020 11:06 AM SUPPLIER SPECIALIST Body Mass Index 26.89 02/19/2020 11:06 AM SUPPLIER SPECIALIST Plan of Treatment Health Maintenance Due Date Last Done Comments BONE DENSITY TESTING 1954 COLOGUARD (AGES 45-75) - COL ON CA SCREENING 1954 COLON MONITORING 1954 COLONOSCOPY - COLON CA SCREENING 1954 CT COLONOGRAPHY - COLON CA SCREENING 1954 Colorectal Cancer Screening 1954 FIT - COLON CA SCREENING 1954 FLEX SIG - COLON CA SCREENING 1954 MAMMOGRAM 1954 MEDICARE AWV 12 MONTHS 1954 HEPATITIS C SCREENING 07/28/1972 DTAP/TDAP/TD VACCINES (1 - Tdap) 1973 PNEUMOCOCCAL VACCINE 50+ (1 of 1 - PCV) 2004 ZOSTER VACCINE (1 of 2) 2004 SCREENING FOR DIABETES 02/19/2020 COVID-19 VACCINE ( - 2023-2 5 season) 2023 DEPRESSION SCREENING 04/16/2024 INFLUENZA VACCINE (Season Ended) 2024 02/08/20 13 Respiratory Syncytial Virus (RSV) Vaccine Pt: or over 60 yrs (1 - 1-dose 75+ series) 2029 HEPATITIS B VACCINE Aged Out No longe r eligible based on patient's age to complete this topic HIB VACCINE Aged Out No longer eligi ble based on patient's age to complete this topic HPV VACCINE Aged Out No longer eligi ble based on patient's age to complete this topic MENINGOCOCCAL (Group B) VACC INE SHARED DECISION-MAKING Aged Out No longer eligibl e based on patient's age to complete this topic MENINGOCOCCAL GROUPS A/C/Y/W VACCINE Aged Out No longer eligible b ased on patient's age to complete this topic Insurance MEDICARE [facility] MEDICARE [facility] Care Teams Drawing Operator Relationship Specialty Start Date End Date Cornelio Massey MD [address] [place] [address] PCP - General Internal Medicine 02/19/20
--- OUTSIDE RECORDS SUMMARY | 2024-09-01 08:02 | XMS_ITS | Encounter Summary ---
Author Organization [facility] Address [address] [place] [address] [place] [address] Care Team Providers Care Waiter/Waitress Buffet Name Role Phone Cornelio Massey MD Primary Care Provider [phone] Encounter Details Date Type Department Care Team (Late st Contact Info) Description 02/25[facility]2020 [facility] Unknown, [...] on filedocumented in this encounter Care Teams Waiter/Waitress Buffet Relationship Specialty Start Date End Date Cornelio Massey MD [address] [place] [phone] PCP - General Internal Medicine 02/19/20 documented as of this encounter
--- OUTSIDE RECORDS SUMMARY | 2024-09-01 08:02 | XMS_ITS | Data Portability ---
Author Organization [place] [facility], Main Office Address [address] [place] [address] Assessment Encounter Date Assessment Date Assessment LastModified by Organization Details LastModified Time 12/26/2022 12/26/2022 Inguinal cyst excision today. Mostly scar tissue with induration excised. RTC in 10-14 days for suture removal. Not available 12/26/2022 11:48:42 01/09/2023 01/09/2023 s/p excision of cyst of L groin. Doing well, no concerns. Sutures removed today. Not available 01/09/2023 11:11:41 Plan of Treatment Reminders Order Date Submit Date Provider Last Modified By Organization Details Last Modified Time Details Appointments None recorded. Lab lipid panel, serum [id number] [facility], [address] [place], [address], 5 15:52:19 TSH, serum or plasma [email or web address] [place] [address] Outpatient Lab, [address] [place], [address], 5 15:52:19 T4, free, serum [id number] [facility], [address] [place], [address], 5 15:52:19 Referral None recorded. Procedures None recorded. Surgeries None recorded. Imaging None recorded. Medication Orders amoxicillin 500 mg capsule 2024 025 [facility] [employer] [id number], [address] [place], [place], [id number], 11:21:43 Patient TargetsNo targets recorded. Patient Instructions Encounter Date Encounter Id Patient Instructions Last Modified By Organization Details Last Modified Time 01/26/2023 [id number] Portions of the record may have been created with voice recognition software. Occasional wrong-word or s ound-a-like substitutions may have occurred due to the inherent limitations of voice recognition software. Read the chart carefully and recognize, using context, where substitutions have occurred. Mammogram Next Appt: 6 Months Approximate Date: 07/25/2023 [email or web address] Not available 01/26/2023 11:41:06 01/24/2024 [id number] dementia rating scale-2* [email or web address] Not available 01/24/2024 10:37:39 alcohol misuse* [email or web address] Not available 01/24/2024 10:37:39 depression screening* Not available 01/24/2024 10:37:39 multi-dimensiona l health assessment questionnaire* [email or web address] Not available 01/24/2024 10:37:39 Personalized a lt Plan and Screening Recommendations Advance Directives - Do you have one? Yes Advance Directives - Do we have your advance directive on file in your health record? No, please bring in a copy at your earliest convenience Primary Prevention/Interven tion (prevents or decreases the chance of common diseases from occurring) Smoking Risk: Non Smoker Alcohol Misuse Screening: Negative Weight: Appropriate Physical activity: Appropriate physical activity Nutrition: Good Average Fall Risk (screened today): Low Vaccines Pneumococcal: Ordered Recommended today Recommended today, but you have declined No further needed Influenza: Your next one in the fall of this year Chronic Disease Risks Stroke: Low Risk Intermediate Risk I have no recommendations Act melody diagnosis, Continue current treatment plan Heart Attack: Low risk Intermediate Risk I have no recommendations Act melody diagnosis, Continue current treatment plan Clogging of the Arteries: Low risk Intermediate Risk I have no recommendations Act melody diagnosis, Continue current treatment plan Diabetes: Low Risk I have no recommendations Secondary Prevention/Interven tion (detects treatable diseases before they may cause symptoms, disability, or ) Breast Cancer Screening with mammogram: Cervical/Uterine/Ov corina Cancer Screening: No screening necessary Osteoporosis Screening: Your next DEXA in: Ordered Recomme nded today Date Screening Last Performed: Colon Cancer Screening: Colonoscopy Date Screening Last Performed: _2014____ Eye Disease Screening: Dementia Risk: Low I have no recommendations Depression Screening: Negative [email or web address] Not available 01/24/2024 10:31:54 [facility] risk assessment stable. 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 Is set up to see her zoogler next week. They will be checking all the blood work. Will continue on current medications. Does need a bone density scan as well as mammogram. Continue on current Rx follow-up in six months Additional Orders - Directives - Recommendations 1. DEXA Scan Follow Up: 6 Months Approximate Date: 07/22/2024 Portions of the record may have been created with voice recognition software. Occasional wrong-word or s ound-a-like substitutions may have occurred due to the inherent limitations of voice recognition software. Read the chart carefully and recognize, using context, where substitutions have occurred. 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 Plan is to check a lipid panel and thyroid. Continue on current Rx will follow-up in six months cover with some amoxicillin for the what appears to be acute sinusitis. Additional Orders - Directives - Recommendations 1. Follow-up 10 year colonoscopy Portions of record are template driven. When necessary additional context will be provided. Additionally some portions have been created with voice recognition software. Occasional wrong-word or s ound-a-like substitutions may have occurred due to the inherent limitations of voice recognition software. Read the chart carefully and recognize, using context, where substitutions may have occurred. Created: Cornelio Massey M.D. 07.24.2024 10:21 AM [email or web address] Not available 07/24/2024 11:21:34 Reason for Referral None Reported. Results Created Date Observation Date Name Description Value Unit Range Abnormal Flag Note LastModifiedBy Organization Detail LastModifiedTime 03/13/20 23 03/13/2023 MAMMO , scree kandy, bilat eral No observ ation record ed. [email or web address] [facility] [address], [place], [address], 03/13/2023 12:39:02 Result Notes None recorded. Problems Name Problem SNOMED Code Status Onset Date Resolution Date Notes Provider Name and Address Organization Details Recorded Time Benign essential hypertensi on 5155034 Active Not Available [facility] 3 01:25:02 Pure hyperchole sterolemia 307257173 Active Not Available [facility] 3 01:25:02 Adult health examinatio n Active 2021 Not Available [facility] 3 01:25:02 Screening for disorder Active 2021 Not Available [facility] 3 01:25:02 Migraine 45095315 Active Not Available [facility] 3 01:25:02 Hypothyroi dism 62159745 Active Not Available [facility] 3 01:25:02 Latent autoimmune diabetes mellitus in adult 757516287 Active Not Available [facility] 3 01:25:02 Type 1 diabetes mellitus 03819789 Completed Not Available [facility] 3 01:25:02 COVID-19 557241702 Active 2021 Not Available [facility] 3 01:25:03 Abscess of skin and/or subcutaneo us tissue 76029869 Active 2022 Tong gusman MD [address], [facility] [address], [place], [address] , [facility] 3 13:26:57 Epidermoid cyst of skin 006595577 Active 2022 Tong gusman MD [address], [facility] [address], [place], [address] , [facility] 3 14:27:42 Senile osteoporos is 80806528 Active 2023 Gela dailey, [facility] 4 10:41:53 Acute sinusitis 02874208 Active 2024 Cornelio Massey MD [address] [facility], [place], [address] , [facility] [employer] [facility] [employer] [facility] 11:19:22 Problem Notes None recorded. Procedures Surgical History Date Name Laterality Status Provider Name and Address Organization Details Recorded Time 01/24/20 24 Medicare Wellness CPT Code, subsequent completed Raven Matias RN [facility] [employer] 01/24/2024 10:23:50 12/27/19 23 Excision Cyst Multilayer completed Tong Thrasher MD [address] [facility] [address], [place], [address], [facility] [employer] [facility] [employer] 12/26/2022 11:48:38 07/12/19 23 Medicare Wellness CPT Code, subsequent completed Raven Matias RN [facility] [employer] [facility] 07/11/2022 11:52:08 12/01/19 22 Date of Last Mammogram completed Raven Matias RN [facility] [employer] [facility] 07/11/2022 11:53:20 02/10/20 21 Most Recent Bone Density completed Not Available [facility] 06/14/2022 01:12:38 06/26/19 15 Date of Last Colonoscopy completed Raven Matias RN [facility] [employer] [facility] 07/11/2022 11:53:32 Imaging Results Imaging Date Name Status LastModified by Organiz ation Details LastModified Time 03/13/2023 MAMMO, screening, bilateral completed [address] [facility] [address], [place], [address], 03/13/2023 12:39:02 Procedure Notes None recorded. Medical Equipment None Reported. Allergies No known drug allergies Medications Name Sig Start Date Stop Date Status Note LastModified by Organization Details LastModified Time amoxicillin 500 mg capsule TAKE 1 CAPSULE BY MOUTH EVERY 8 HOURS active Not Available Not Available No t Available pravastatin 40 mg tablet TAKE 1 TABLET BY MOUTH IN THE EVENING active Not Available Not Available No t Available Glucagon Emergency Kit 1 mg solution for injection USE FOR SEVERE HYPOGLYCE AMA active Not Available Not Available No t Available Keflex 500 mg capsule Take 1 capsule every 6 hours by oral route. 08/25 completed Not Available Not Available Not Available meloxicam 15 mg tablet TAKE 1 TABLET BY MOUTH EVERY DAY 12/10 completed Not Available Not Available Not Available lisinopril 20 mg tablet TAKE 1 TABLET BY MOUTH DAILY active Not Available Not Available No t Available Synthroid 100 mcg tablet Take 1 tablet every day by oral route. 06/23 completed Not Available Not Available Not Available penicillin V potassium 500 mg tablet TAKE 1 TABLET BY MOUTH EVERY 6 HOURS 01/26 completed Not Available Not Available Not Available sulfamethox azole 800 mg-trimetho prim 160 mg tablet TAKE 1 TABLET BY MOUTH TWICE DAILY 01/26 completed Not Available Not Available Not Available aspirin 81 mg tablet,rich yed release Take 1 tablet every day by oral route. 06/23 completed Not Available Not Available Not Available meloxicam 7.5 mg tablet TAKE 1 TABLET BY MOUTH DAILY active Not Available Not Available No t Available prednisolon e acetate 1 % eye drops,suspe nsion SHAKE LIQUID AND INSTILL 1 DROP IN RIGHT EYE DAILY active Not Available Not Available No t Available Humalog U-100 Insulin 100 unit/mL subcutaneou s solution 4 units before meals 2013 active Not Available Not Available Not Avai lable levothyroxi ne 50 mcg tablet TK 1 T PO D active Not Available Not Available No t Available Novolog U-100 Insulin aspart 100 unit/mL subcutaneou s solution INJECT 60 UNITS VIA PUMP DAILY active Not Available Not Available No t Available [place] 7.5 mg-325 mg tablet One every six hours PRN for left sciatic pain 12/20 completed Not Available Not Available Not Available methylpredn isolone 4 mg tablets in a dose pack As directed 12/20 completed Not Available Not Available Not Available neomycin 3.5 mg/g-polymy huong B 10,000 unit/g-dexa meth 0.1 % eye oint APPLY 1/4 INCH STRIP IN RIGHT EYE EVERY NIGHT 07/24 completed Not Available Not Available Not Available Os-Mendel 500 + D3 daily 01/26 completed Not Available Not Available Not Available insulin pump cartridge as directed 2013 active Not Available Not Available Not Avai lable Lantus Solostar U-100 Insulin 100 unit/mL (3 mL) subcutaneou s pen ADMINISTE R 14 UNITS UNDER THE SKIN DAILY active Not Available Not Available No t Available brimonidine 0.2 %-timolol 0.5 % eye drops INSTILL 1 DROP IN BOTH EYES TWICE DAILY 07/24 completed Not Available Not Available Not Available diflupredna te 0.05 % eye drops INSTILL 1 DROP IN RIGHT EYE THREE TIMES DAILY active Not Available Not Available No t Available Besivance 0.6 % eye drops,suspe nsion SHAKE LIQUID AND INSTILL 1 DROP IN RIGHT EYE THREE TIMES DAILY active Not Available Not Available No t Available Os-Mendel 500 + D3 500 mg-15 mcg (600 unit) tablet Take 1 tablet twice a day by oral route. active Not Available Not Available No t Available Accu-Chek Guide test strips USE TWICE DAILY TO TEST BLOOD SUGAR active Not Available Not Available No t Available Fiasp U-100 Insulin 100 unit/mL subcutaneou s solution PATIENT USES UP TO 60 UNITS PER DAY VIA INSULIN PUMP active Not Available Not Available No t Available Flowflex COVID-19 Antigen Home Test kit Use as Directed on the Package 12/23 completed Not Available Not Available Not Available Paxlovid 300 mg (150 mg x 2)-100 mg tablets in a dose pack TK 2 NIRMATREL VIR TS AND 1 RITONAVIR T TOGETHER PO BID FOR 5 DAYS TWICE DAILY FOR 5 DAYS. HOLD PRAVASTAT IN WHILE ON MEDICATIO N 12/23 completed Not Available Not Available Not Available Paxlovid 150 mg-100 mg tablets in a dose pack (Moderate Renal Dose) Take by oral route. Take two 150 mg and one 100 mg tablet twice daily for five days 12/23 completed Not Available Not Available Not Available insulin pump cart,15 units/day as directed 01/26 completed Not Available Not Available Not Available Vitals Date Recorded Body height Body mass index (BMI) Body weight Body temperature Heart rate Oxygen saturation Oxygen saturation in Arterial blood by Pulse oximetry Systolic blood pressure Diastolic blood pressure Provider Name and Address Organization Details Last Updated DateTime 3 157.48 cm 26.5 kg/m2 01679.8 9 g 97.8 [degF] 80 /min 98 % 98 % 122 mm[Hg] 82 mm[Hg] CLEVE Houser - [facility] [employer] [facility] 3 11:17:05 Date Recorded Body height Body mass index (BMI) Body weight Body temperature Heart rate Respiratory rate Oxygen saturation Oxygen saturation in Arterial blood by Pulse oximetry Systolic blood pressure Diastolic blood pressure Provider Name and Address Organization Details Last Updated DateTime 3 157.48 cm 26.5 kg/m2 48025.8 9 g 98.6 [degF] 80 /min 14 /min 99 % 99 % 120 mm[Hg] 80 mm[Hg] Jenna Barfield MA [facility] [employer] [facility] 3 11:03:38 Date Recorded Body height Body mass index (BMI) Body weight Heart rate Body temperature Oxygen saturation Oxygen saturation in Arterial blood by Pulse oximetry Systolic blood pressure Diastolic blood pressure Provider Name and Address Organization Details Last Updated DateTime 3 156.21 cm 26.8 kg/m2 53139.3 g 66 /min 97 [degF] 97 % 97 % 122 mm[Hg] 80 mm[Hg] [facility] [employer] [facility] 3 11:28:00 Date Recorded Body height Body mass index (BMI) Body weight Heart rate Body temperature Oxygen saturation Oxygen saturation in Arterial blood by Pulse oximetry Systolic blood pressure Diastolic blood pressure Provider Name and Address Organization Details Last Updated DateTime 4 156.21 cm 27 kg/m2 77857.8 9 g 63 /min 97 [degF] 98 % 98 % 140 mm[Hg] 80 mm[Hg] CLEVE Crawford [facility] [employer] [facility] 4 10:20:17 Date Recorded Body height Body mass index (BMI) Body weight Heart rate Body temperature Oxygen saturation Oxygen saturation in Arterial blood by Pulse oximetry Systolic blood pressure Diastolic blood pressure Provider Name and Address Organization Details Last Updated DateTime 5 156.21 cm 27.3 kg/m2 59225.0 8 g 80 /min 97 [degF] 99 % 99 % 122 mm[Hg] 78 mm[Hg] Veronica Radhalamar [facility] [employer] [facility] 5 10:59:35 Social History Question Answer Notes LastModified by Organizat ion Details LastModified Time Tobacco Smoking Status Never Smoker Not Available [employer] 06/14/2022 01:06:14 Do You Have An Advance Directive? Yes [id number] Information not available 06/14/2022 Are You Blind Or Do You Have Difficulty Seeing? No MIGRATION.15920 [id number] Information not available 06/14/2022 In The 14 Days Before Symptom Onset, Have You Had Close Contact With A Laboratory-confir med COVID-19 While That Case Was Ill? No MIGRATION.21870 [id number] Information not available 06/14/2022 In The 14 Days Before Symptom Onset, Have You Had Close Contact With A Person Who Is Under Investigation For COVID-19 While That Person Was Ill? No MIGRATION.13918 [id number] Information not available 06/14/2022 Are You Deaf Or Do You Have Serious Difficulty Hearing? No MIGRATION.26911 [id number] Information not available 06/14/2022 What Type Of Diet Are You Following? REGULAR MIGRATION.68362 [id number] Information not available 06/14/2022 Have There Been Any Changes To Your Family Or Social Situation? No MIGRATION.39122 [id number] Information not available 06/14/2022 What Is The Fluoride Status Of Your Home? Unknown [email or web address] Information not available 07/11/2022 Do You Use Insect Repellent Routinely? Yes MIGRATION.53543 54639 Information not available 06/14/2022 Where Do You Live? [place] MIGRATION.15415 89148 Information not available 06/14/2022 Are You Able To Care For Yourself? Yes Information not available 07/11/2022 Are You Blind Or Do Yo Have Difficulty Seeing? No [email or web address] Information not available 07/11/2022 Are You Deaf Or Do You Have Serious Difficulty Hearing? No [email or web address] Information not available 07/11/2022 Live Alone Of With Others? With Others [email or web address] Information not available 07/11/2022 Do You Have A Medical Power Of Welder Fitter Helper? Yes [email or web address] Information not available 07/11/2022 What Was The Date Of Your Most Recent Tobacco Screening? 01/24/2024 [email or web address] Information not available 01/24/2024 Do You Have Any Pets? No MIGRATION.94198 [id number] Information not available 06/14/2022 What Is Your Relationship Status? MIGRATION.84510 [id number] Information not available 06/14/2022 Do You Use Your Seat Belt Or Car Seat Routinely? Yes MIGRATION.96284 08788 Information not available 06/14/2022 Do You Have Smoke And Carbon Monoxide Detectors In Your Home? Yes MIGRATION.60038 35571 Information not available 06/14/2022 Are You Passively Exposed To Smoke? No MIGRATION.87797 25990 Information not available 06/14/2022 Are There Any Smokers In Your House? No MIGRATION.17148 29838 Information not available 06/14/2022 Do You Use Sunscreen Routinely? Yes MIGRATION.24880 66103 Information not available 06/14/2022 Have You Recently Traveled Abroad? No MIGRATION.51470 78523 Information not available 06/14/2022 Do You Have Difficulty Walking Or Climbing Stairs? No MIGRATION.90853 80260 Information not available 06/14/2022 Sex: Female Functional Status Question Answer Note LastModified by [employer] Details LastModified Time What is your level of alcohol consumption? Occasional MIGRATION.[id number] Information not available 06/14/2022 Do you have transportation difficulties? No MIGRATION.814393 9945 Information not available 06/14/2022 Are you able to walk? YESWOREST MIGRATION.566633 6774 Information not available 06/14/2022 Do you have difficulty doing errands alone? No MIGRATION.560232 3878 Information not available 06/14/2022 Are you able to care for yourself? Yes MIGRATION.603849 6385 Information not available 06/14/2022 Do you have difficulty dressing or bathing? No MIGRATION.092923 5934 Information not available 06/14/2022 Do you or have you ever used e-cigarettes or vape? Never used electronic cigarettes MIGRATION.479504 0525 Information not available 06/14/2022 What is your exercise level? Moderate MIGRATION.007796 3986 Information not available 06/14/2022 Mental Status Question Answer Note LastModified by Organizat ion Details LastModified Time Do you have difficulty concentrating, remembering or making decisions? No MIGRATION.[id number] Information not available 06/14/2022 Family History Relationship Description Onset Age of this Age Resolved Age Notes LastModified by Organization Details LastModified Time Mother Family history of malignant neoplasm [id number] Not available 06/14/2022 01:12:51 Mother Hypertensive disorder MIGRATION.148 [id number] Not available 06/14/2022 01:12:51 Mother Diabetes mellitus MIGRATION.493 [id number] Not available 06/14/2022 01:12:51 Notes:Mother 81 fro m DM and ASHD Father Living 96 years old HTN 1 Brothers 1 Living Medical History Condition Response NERVE DISEASE N BLINDNESS N RHEUMATIC FEVER N KIDNEY STONES N BLADDER PROBLEMS N OTHER # 1 N POLIO N LUNG DISEASE/DISORDER N RADIATION / CHEMOTHERAPY N COPD N Other # 2 N BLOOD DISEASES N SURGERY N EAR OR HEARING PROBLEMS N MUMPS N DEPRESSION (INCLUDING POST ) N BOWEL PROBLEMS N STROKE/TIA N ULCERS N BENIGN PROSTATIC HYPERPLASIA N MEASLES N MYOCARDIAL INFARCTION N OBESITY N GERD/NAUSEA N ANEURYSM N URINARY/BLADDER/KIDNEY PROBLEMS N INPATIENT PSYCH CARE N CORONARY ARTERY DISEASE (CAD) N ADDICTION CONCERNS N Impotence N ENDOMETRIOSIS N USE OF BLOOD THINNERS N SKIN PROBLEMS N GASTROINTESTINAL DISORDER N PERIPHERAL VASCULAR DISEASE N MUSCLE,JOINT OR BONE PROBLEMS N GASTROINTESTINAL BLEEDING N BLOOD CLOTS N ASTHMA N CATARACTS N ERECTILE DYSFUNCTION N VARICOSITIES N GI PROBLEMS N Low Testosterone N INFERTILITY N AIDS/HIV N LIVER DISEASE N MALE HYPOGONADISM N HYPERTENSION Y Deficiency N ANXIETY DISORDER N BLOOD TRANSFUSION N ANEMIA/BLOOD DISORDER N CHRONIC EAR INFECTIONS N BRONCHITIS N TUBERCULOSIS N GLAUCOMA N DIVERTICULITIS N SLEEP APNEA N CHICKENPOX N INFECTIOUS DISEASE N PROSTATE N HEART ARRHYTHMIA N INSOMNIA N HIGH CHOLESTEROL / HYPERLIPIDEMIA Y HYPERTHYROIDISM N EYE PROBLEMS N NEUROLOGICAL PROBLEMS N EDEMA N CHRONIC PAIN SYNDROME N HYPOTHYROIDISM Y CONSTIPATION N CAROTID BLOCKAGE N BACK / NECK PROBLEMS N HAVE YOU BEEN HOSPITALIZED OR SEEN IN [facility] IN THE PAST YEAR ? N ATHEROSCLEROSIS N BREAST PROBLEMS N DIALYSIS N ECZEMA N OSTEOPOROSIS N ARTHRITIS N NO SIGNIFICANT PAST MEDICAL HISTORY N APPENDICITIS N DIABETES, TYPE Y BAD TEETH N ENT N HEARTBURN / REFLUX N AUTISM SPECTRUM DISORDER (ASD) N HEPATITIS / LIVER DISEASE N PULMONARY DISEASE N GOUT N SLEEP DISORDER N ALZHEIMER'S DISEASE N Brain Problems N HERPES N DEMENTIA N SEIZURES/EPILEPSY N HEADACHES/MIGRAINES Y VASCULAR DISEASE N PACEMAKER N Blood Disorder N DIZZINESS N KIDNEY DISEASE N HEART DISEASE/HEART PROBLEMS N MULTIPLE SCLEROSIS N CARDIAC ARRHYTHMIA N CANCER: SPECIFY N ANESTHESIA COMPLICATIONS N Gall Stones N ATRIAL FIBRILLATION N PULMONARY EMBOLISM N AUTOIMMUNE DISEASE N Gynecological History Statement/Question Response Date of Last Mammogram 12/03/2020 Date of Last Colonoscopy 06/25/2014 Date of Last Mammogram 11/30/2021 Most Recent Bone Density 02/09/2021 Obstetrics History GPAL:G 0 P 0 0 0 0 Immunizations Vaccine Type Date Status Note Provider Nam e and Address Organization Details Recorded Time influenza, unspecified formulation 3 completed Veronica Slecka null, [facility] 01/26/2023 11:29:33 SARS-COV-2 (COVID-19) vaccine, UNSPECIFIED 3 completed Veronica Slecka null, [facility] 01/26/2023 11:29:53 Respiratory syncytial virus (RSV) vaccine, unspecified 3 completed Veronica Slecka null, [facility] 01/26/2023 11:30:17 pneumococcal polysaccharide PPV23 3 completed Veronica Radhacka [facility], [facility] 07/11/2022 12:46:26 Influenza, split virus, trivalent, preservative 3 completed Not Available [facility] 06/14/2022 01:41:12 SARS-COV-2 (COVID-19) vaccine, UNSPECIFIED 1 completed Not Available [facility] 06/14/2022 01:41:13 Pneumococcal conjugate PCV 13 0 completed Not Available [facility] 06/14/2022 01:41:13 COVID-19 Non-[place] Vaccine, Product Unknown 1 completed Not Available [facility] 06/14/2022 01:41:13 COVID-19 Non-US Vaccine, Product Unknown 1 completed Not Available [facility] 06/14/2022 01:41:13 Past Encounters Encounter ID Performer Location Encounter Start Date Encounter Closed Date Diagnosis/Indication Diagnosis SNOMED-CT Code Diagnosis ICD10 Code Diagnosis Note [id number] Cornelio Massey MD [facility] Internal Med [place] [address] [address] , [facility] [place] [address] 06/18/2020 00:00:00 06/18/2020 10:55:16 [id number] Stew Bang MD [facility] Ortho [place] [address] [facility] [address] [place] [address] 06/23/2020 00:00:00 06/23/2020 10:14:00 [id number] Stew Bang MD [facility] Ortho [place] [address] [facility] [address] [place] [address] 07/23/2020 00:00:00 07/23/2020 09:24:14 [id number] Cornelio Massey MD [facility] Internal Med [place] [address] , [place] [address] 12/10/2020 00:00:00 12/10/2020 13:02:06 [id number] Tong gusman MD [facility] General Surgery [address], [address] [address] 02/03/2021 00:00:00 02/03/2021 13:47:57 [id number] Cornelio Massey MD [facility] Internal Med [place] [address] [place] [address] y , [place] [address] 06/21/2021 00:00:00 06/21/2021 10:53:22 [id number] Tong gusman MD [facility] General Surgery [address], [address] [address] 12/20/2021 00:00:00 12/21/2021 11:20:39 [id number] Cornelio Massey MD [facility] Internal Med [place] [address] [place] [address] y , [place] [address] 12/23/2021 00:00:00 12/23/2021 12:32:04 [id number] Tong gusman MD [facility] General Surgery [address], [address] [address] 02/07/2022 00:00:00 02/07/2022 14:30:14 [id number] Cornelio Massey MD [facility] Internal Med [place] [address] [place] [address] 07/11/2022 11:09:44 07/11/2022 12:19:49 Adult health examination 701565545 Z00.00 Screening for disorder 871288948 Z13.9 Benign ess ential hypertension 6912318 I10 Pure hypercholesterolemia 219898861 E78.00 Hypothyroidism 25097089 E03.9 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 890119047 E13.9 Administra tion of pneumococcal vaccine 05133039 Z23 [id number] Tong gusman MD [facility] General Surgery [address] [place] [address] 1 12/07/2022 11:20:45 12/07/2022 14:53:31 Abscess of skin and/or subcutaneous tissue 18619794 L02.91 Left inguinal [id number] Tong gusman MD [facility] General Surgery [address] [place] [address] 1 12/26/2022 11:16:06 12/27/2022 14:36:35 Epidermoid cyst of skin 811530619 L72.0 Left inguinal [id number] Tong gusman MD [facility] General Surgery [address] [address] 01/09/2023 10:38:14 01/09/2023 13:13:54 Epidermoid cyst of skin 437016458 L72.0 Left inguinal [id number] Cornelio Massey MD [facility] Internal Med [place] [facility] [address] [place] [address] 01/26/2023 10:56:06 01/26/2023 11:45:43 Benign essential hypertension 4864750 I10 Hypothyroidism 78648722 E03.9 Pure hypercholesterolemia 172226463 E78.00 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 146409891 E13.9 [id number] Cornelio Massey MD [facility] Internal Med [place] [address] [place] [address] 01/24/2024 10:01:38 01/24/2024 10:46:13 Adult health examination 634415422 Z00.00 Screening for disorder 504888063 Z13.9 Hypothyroidism 54058257 E03.9 Pure hypercholesterolemia 491687297 E78.00 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 673814249 E13.9 [id number] Cornelio Massey MD [facility] [place] [address] [facility] [address] [place] [address] 07/24/2024 10:13:00 07/24/2024 11:26:32 Benign essential hypertension 7190965 I10 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 503141319 E13.9 Pure hypercholesterolemia 597042781 E78.00 Hypothyroidism 34049217 E03.9 Acute sinusitis 77811658 J01.90 Health Concerns Section Related Observation LastModified by Organization Detai ls LastModified Time None Recorded Concern Status LastModified by Organization Details LastModified Time None Recorded Advance Directives Directive Y: Payers Encounter Date Sequence Insurance Name Policy Number Policy Alejo Covered Member ID Alejo Member ID Guarantor Name 12/26/2022 1 [place] Jessy Reeves Barthi [id number] 2 Jessy Reeves Barthi 12/26/2022 2 [id number] Jessy Reeves Barthi [id number] Jessy Reeves Barthi 01/09/2023 1 [place] Jessy Reeves Barthi [id number] Jessy Reeves Barthi 01/09/2023 2 [id number] Jessy Reeves Barthi [id number] Jessy Reeves Barthi 01/26/2023 1 [place] Jessy Reeves Barthi [id number] 2 Jessy J Barthi 01/26/2023 2 [id number] Jessy Reeves Barthi [id number] Jessy J Barthi 01/24/2024 1 [place] Jessy Reeves Barthi [id number] 2 Jessy Reeves Barthi 01/24/2024 2 [id number] Jessy Reeves Barthi [id number] Jessy Leandro Barthi 07/24/2024 1 [place] Jessy Reeves Barthi [id number] 2 Jessy Valle 07/24/2024 2 [facility] ([id number] Jessy Valle [id number] Jessy Valle Notes Date Note Type Note Provider Name and Address Organization Details Recorded Time 3 text/html Patient presents to clinic to discuss excision of groin lesion. states she has had infected cyst twice in the past year, not inflamed right now but here for removal. No drainage, no fevers. Tong lomax MD [address] [facility], [place] [address], [place], [address], [facility] [employer] [facility] 12/26/2022 14:28:24 3 text/html s/p excision of groin lesion. Doing well. No drainage, no fevers. Tong lomax MD [address] [facility], [place] [address], [place], [address], [employer] [facility] 01/09/2023 14:16:05 3 text/html Patient Name: Jessy Jimenez Of Service: Sunday ( 01.26.2023 ): 1955 Age: 67 There has been approximately a 1.5 lb weight loss since 07/11/2022. This represents approximately a 1.0% change in weight. Weight change attributable to lifestyle changes. Vital Signs:Blood Pressure: Sitting Rt. Arm 122/80Pulse: Sitting 66 /min and RegularRespiratory Rate: 12Height 61.5 in or 1.6 mWeight 144 lb or 65.3 kgBMI 26.8Temperature: 97 F or 36.1 CPulse Oximetry: 97 % at rest on no oxygen Chief Complaint: Addressed in HPI Problems or conditions discussed in the HPI were the only ones reviewed during the encounter.Only social and family history addressed in the HPI were reviewed during this encounter. Attendant(s): NoneConstitutional and Systemic Symptoms:none Medication Reconciliation: from medication list. History of Present Illness #1. Essential Hypertension: Stage: Stage I Interval Neurological Complaints no headaches. No shortness of breath, orthopnea or cardiovascular symptoms. No other symptoms related to end organ damage. Pressure has been under excellent control. Currently normal. No other end organ symptoms or findings. Therapy reviewed regarding management of hypertension and includes salt restriction and Lisinopril. #2. Type II Hypercholesterolaemia: Currently taking medication and tolerating well. No interval complaints of any muscle pain or arthralgia. No significant liver changes with medications. Last lipid panel: fair control. Therapy reviewed regarding treatment of cholesterol management and include diet and Pravachol. #3. Hx of hypothyroidism currently stable. Heat intolerance: no Fatigue: no Weight gain: no Difficulty concentrating: no Muscle Symptoms: none Skin Texture: normal Skin Color: normal Currently taking synthroid. #4. Type II Diabetes: Has had no polyuria polyphagia or polydipsia. Has had no hypoglycemic like responses. No new history of any numbness, tingling, weakness or visual problems. No nausea, anorexia or other constitutional symptoms. There has been no foot problems or non healing lesions. The last HAIC was DCCT HAIC: 7.1 Calculated MB mg%. Average blood sugars 125-150 mg%. Checking sugars : not at all Medication Types Include: Insulin pump Secondary complications include none. Macro-vascular complications include none. Therapy reviewed regarding diabetic management and include Insulin Pump and diet only Compliance: good Renal Protection: JENNIFER inhibitors Lipid management: statins Urinary microalbumin: A1 . Ophthalmological: has seen eye doctor within the last yearMedication List Reviewed and Reconciled 3Pravachol 40 MG (TABLET - ORAL) One Hs For CholesterolInsulin Pump As DirectedLisinopril 20 MG (TABLET - ORAL) One Daily For HtnMobic 7.5 MG (TABLET - ORAL) One Daily For TendonitisOs-mendel D One Tablet DailySynthroid 0.075 MG (TABLET - ORAL) One DailySocial HistorySOCIAL HISTORY:Does not smoke cigarettes. Drinking Hx: 4 Cups of coffee per day, < 6 cans of soft drinks per day.Exercise: InfrequentlySexual Hx: Sexually ActiveFamily HistoryFAMILY HISTORY:Mother 81 from DM and ASHDFather Living 96 years old HTN1 Brothers 1 Living Cornelio Massey MD [address] [facility], [facility] [address], [place], [address], [facility] [employer] 01/26/2023 11:41:26 4 text/html Patient Name: Jessy Jimenez Of Service: January ( 01.24.2024 ): 1955 Age: 68 Vital Signs:Blood Pressure: Sitting Rt. Arm 140/80Pulse: Sitting 63 /min and RegularRespiratory Rate: 16Height 61.5 in or 1.6 mWeight 145 lb or 65.8 kgBMI 27.0Temperature: 97 F or 36.1 CPulse Oximetry: 98 % at rest on no oxygen Chief Complaint: Addressed in HPI Problems or conditions discussed in the HPI were the only ones reviewed during the encounter.Only social and family history addressed in the HPI were reviewed during this encounter. A significant, separate E/M service was performed to evaluate the current and new problems. Attendant(s): NoneConstitutional and Systemic Symptoms:none Medication Reconciliation: from medication list. History of Present Illness Reviewed the findings of the preventative health visit. Addressed all areas with the patient, patient's family or caregivers. Preventative examinations and testing immunizations - vaccinations, colonic neoplasm screening, mammograms and DEXA Scan all reviewed and ordered where patient was amenable to the recommendations. Cognitive function was normal. Depression addressed and where necessary medications were adjusted or instituted. End of life and living will briefly discussed with patient and where these can be filled out and legally executed. Other blood and imaging studies were ordered if considered necessary. Other recommendations may be found in the encounter note. #1. Type II Hypercholesterolaemia: Currently taking medication and tolerating well. Some interval complaints of any muscle pain or arthralgia. No significant liver changes with medications. Last lipid panel: fair control. Therapy reviewed regarding treatment of cholesterol management and include diet and Pravachol. #2. Hx of hypothyroidism currently stable. Heat intolerance: no Fatigue: no Weight gain: no Difficulty concentrating: no Muscle Symptoms: none Skin Texture: normal Skin Color: normal Currently taking synthroid. #3. KAISER Diabetes: Has had no polyuria polyphagia or polydipsia. Has had no hypoglycemic like responses. No new history of any numbness, tingling, weakness or visual problems. No nausea, anorexia or other constitutional symptoms. There has been no foot problems or non healing lesions. The last HAIC was <6.5. CGM: No. Average blood sugars 125-150 mg%. Checking sugars : approximately twice daily. Medication Types Include: Insulin and Insulin pump Secondary complications include none. Macro-vascular complications include none. Therapy reviewed regarding diabetic management and include Insulin Pump Compliance: good Renal Protection: JENNIFER inhibitors Lipid management: statins Urinary microalbumin: A1 . Ophthalmological: has seen eye doctor within the last year. Control: Below 6.2 Active Medication ListPravachol 40 MG (TABLET - ORAL) One Hs For CholesterolInsulin Pump As DirectedLisinopril 20 MG (TABLET - ORAL) One Daily For HtnMobic 7.5 MG (TABLET - ORAL) One Daily For TendonitisOs-mendel D One Tablet DailySynthroid 0.075 MG (TABLET - ORAL) One Daily Social HistorySOCIAL HISTORY:Does not smoke cigarettes. Drinking Hx: 4 Cups of coffee per day, < 6 cans of soft drinks per day.Exercise: InfrequentlySexual Hx: Sexually ActiveFamily HistoryFAMILY HISTORY:Mother 81 from DM and ASHDFather Living 96 years old HTN1 Brothers 1 Living Cornelio Massey MD [address] [facility] [address], [place], [address], [facility] [employer] 01/24/2024 10:37:43 5 text/html Patient Name: Jessy Jimenez Of Service: July ( 07.24.2024 ): 1955 Age: 68 There has been approximately a 2 lb weight gain since 01/24/2024. This represents approximately a 1.4% change in weight. Weight change attributable to lifestyle changes. Vital Signs:Blood Pressure: Sitting Rt. Arm 122/78Pulse: Sitting 80 /min and RegularRespiratory Rate: 16Height 61.5 in or 1.6 mWeight 147 lb or 66.7 kgBMI 27.3Temperature: 97 F or 36.1 CDCCT HAIC: 6.8 Calculated MB mg%Pulse Oximetry: 99 % at rest on no oxygen Chief Complaint: Addressed in HPI Problems or conditions discussed in the HPI were the only ones reviewed during the encounter.Only social and family history addressed in the HPI were reviewed during this encounter. Attendant(s): NoneConstitutional and Systemic Symptoms:none Medication Reconciliation: from medication list. History of Present Illness #1. Essential Hypertension: Stage: Stage I Interval Neurological Complaints no headaches, dizziness, weakness, visual changes, ataxia, aphasia and apraxia. No shortness of breath, orthopnea or cardiovascular symptoms. No other symptoms related to end organ damage. Pressure has been under excellent control. Currently normal. No other end organ symptoms or findings. Therapy reviewed regarding management of hypertension and includes salt restriction and Lisinopril. #2. Type II Hypercholesterolaemia: Currently taking medication and tolerating well. No interval complaints of any muscle pain or arthralgia. No significant liver changes with medications. Last lipid panel: fair control. Therapy reviewed regarding treatment of cholesterol management and include diet and Pravachol. #3. Type II Diabetes: Has had no polyuria polyphagia or polydipsia. Has had no hypoglycemic like responses. No new history of any numbness, tingling, weakness or visual problems. No nausea, anorexia or other constitutional symptoms. There has been no foot problems or non healing lesions. The last HAIC was DCCT HAIC: 6.8 Calculated MB mg%. CGM: No. Average blood sugars not taking blood sugars regularly and instructed on the importance of monitor these values. Checking sugars : not at all. Medication Types Include: diet and Insulin Secondary complications include none. Macro-vascular complications include none. Therapy reviewed regarding diabetic management and include Lisinopril Compliance: good Renal Protection: JENNIFER inhibitors Lipid management: statins Urinary microalbumin: A1 . Ophthalmological: has seen eye doctor within the last year. Control: Good Control 6.2 - 7.0#4. Hypothyroidism currently on Synthroid doing well. No interval complaints of any symptomatology suggestive either overactive or underactive thyroid.Active Medication ListPravachol 40 MG (TABLET - ORAL) One Hs For CholesterolPrednisolone Acetate, Ophthalm 1 % One Drip DailyInsulin Pump As DirectedLisinopril 20 MG (TABLET - ORAL) One Daily For HtnMobic 7.5 MG (TABLET - ORAL) One Daily For TendonitisOs-mendel D One Tablet DailySynthroid 0.075 MG (TABLET - ORAL) One Daily Social HistorySOCIAL HISTORY:Does not smoke cigarettes. Drinking Hx: 4 Cups of coffee per day, < 6 cans of soft drinks per day.Exercise: InfrequentlySexual Hx: Sexually ActiveFamily HistoryFAMILY HISTORY:Mother 81 from DM and ASHDFather Living 96 years old HTN1 Brothers 1 Living Cornelio Massey MD [address], [facility] [address], [place], [address], [facility] 07/24/2024 11:21:54 OBGyn Episode No OBEpisode recorded.
== END 2024-09-01 07:58 | disposition home or self-care (01) ==
LOC: ANHIMG 07:59
PROVIDERS: PCP Internal Medicine; Visit Provider Internal Medicine
DX: M85.852 Other specified disorders of bone density and structure, left thigh (principal); M85.851 Other specified disorders of bone density and structure, right thigh
CPT/HCPCS: 77080

== ENCOUNTER 2024-12-01 00:22 | Day surgery (SDC) | payer MEDICARE, SELFPAY ==
[2024-11-07 09:47] VITALS: BMI 27.3
--- OUTSIDE RECORDS SUMMARY | 2024-11-19 03:07 | XMS_ITS | Encounter Summary ---
Author Organization [facility] Health Address [address] [place] [address] [place] [address] Care Team Providers Care Space Studies Faculty Member Name Role Phone Cornelio Massey MD Primary Care Provider [phone] Encounter Details Date Type Department Care Team [...] on filedocumented in this encounter Care Teams Space Studies Faculty Member Relationship Specialty Start Date End Date Cornelio Massey MD [address] [place] [phone] PCP - General Internal Medicine 02/19/20 documented as of this encounter
--- OUTSIDE RECORDS SUMMARY | 2024-11-19 03:07 | XMS_ITS | Encounter Summary ---
Author Organization [facility] Health Address [address] [place] [address] [place] [address] Care Team Providers Care Machine Filler Servicer Name Role Phone Cornelio Massey MD Primary Care Provider [phone] Encounter Details Date Type Department Care Team [...] on filedocumented in this encounter Care Teams Machine Filler Servicer Relationship Specialty Start Date End Date Cornelio Massey MD [address] [place] [phone] PCP - General Internal Medicine 02/19/20 documented as of this encounter
--- OUTSIDE RECORDS SUMMARY | 2024-11-19 03:08 | XMS_ITS | Encounter Summary ---
Author Organization [facility] Address [address] [facility] [place] [address] Care Team Providers Care Physical Ther Name Role Phone Cornelio Massey MD Primary Care Provider [phone] Encounter Details Date Type Department Care Team (Late st Contact Info) Description 05/22/2023 Lab Requisition [facility] - DermPath Lab [address] [facility], [place] [address] Kim Hodge DO [address] [facility] 3 [place] [address] Social History Tobacco Use Types Packs/Day Years [...] Comments DERMATOPATHOLOGY Routine 05/22/2023 10:0 6 AM CHIEF PROGRAM OFFICER documented in this encounter Results * DERMATOPATHOLOGY (05/22/2023 10:06 AM CHIEF PROGRAM OFFICER) Case Report Dermatopathology Report Case: [id number] Authorizing Provider: Kim Hodge DO Collected: 05/22/2023 10:06 AM Ordering Location: [facility] DermPath Lab Received: 05/23/2023 08:22 AM Pathologist: Rakesh Zacarias MD Specimen: Skin, right ant LE 5:09 PM CHIEF PROGRAM OFFICER DERMATOPATHOLOGY LABORATORY Final Diagnosis Specimen A. SKIN, right ant LE: SOLAR LENTIGO (L81.4) 4 5:09 PM [facility] DERMATOPATHOLOGY LABORATORY at 1709 CHIEF PROGRAM OFFICER Clinical History Nevus R/O atypia 4 5:09 PM [facility] DERMATOPATHOLOGY LABORATORY Gross Description Specimen A: Received is one formalin filled container labeled with the patient's name and designated right ant LE. The specimen consists of a shave biopsy measuring 5x5x1 mm. Jar 0. 4 5:09 PM [facility] DERMATOPATHOLOGY LABORATORY Microscopic Description Specimen A. SKIN, right ant LE: There is orthokeratosis. There is a slight increase in epidermal thickness with lentiginous buds of hyperpigmented keratinocytes. The number of melanocytes is only mildly increased. In the dermis, there is basophilic degeneration of elastic fibers. 5:09 PM [facility] DERMATOPATHOLOGY LABORATORY Disclaimer An external and internal positive and negative controls are appropriate for the histochemical, immunohistochemical and immunofluorescence stain(s) in this case (if any), except where stated explicitly. The performance characteristics of the stain(s) cited in this report were developed and its performance characteristic determined by the Dermatopathology Laboratory at [facility], directed by Dr. Johnathan Zacarias. These tests need not be, and therefore are not, approved by the [place] Food and Drug Administration. The tests are used for clinical purposes. Billing Codes Specimen Charges Stain Charges 42841 1 4 5:09 PM [facility] DERMATOPATHOLOGY LABORATORY Embedded Images 4 5:09 PM [facility] DERMATOPATHOLOGY LABORATORY Pathology/Cytolo gy TISSUE SPECIMEN FROM SKIN / Unknown 05/22/2023 10:06 AM CHIEF PROGRAM OFFICER 05/23/2023 8:22 AM CHIEF PROGRAM OFFICER us Kim Hodge DO LAB - PATHOLOGY/CYTOLOGY ORDERABLES Final Result DERMATOPATHOLOGY LABORATORY [facility] - Department of Dermatology [address] [phone] documented in this encounter Visit Diagnoses Not on filedocumented in this encounter Care Teams Physical Ther Relationship Specialty Start Date End Date Cornelio Massey MD [address] [place] [address] PCP - General Internal Medicine 02/19/20 documented as of this encounter
--- OUTSIDE RECORDS SUMMARY | 2024-11-19 03:08 | XMS_ITS | Encounter Summary ---
Author Organization [facility] Address [address] [facility] [place] [address] Care Team Providers Care Player Piano Technician Name Role Phone Cornelio Massey MD Primary Care Provider [phone] Encounter Details Date Type Department Care Team (Late st Contact Info) Description 05/27/2024 Lab Requisition [facility] - DermPath Lab [address] [facility] [place] [address] Kim Hodge DO [address] [facility] 3 [place] [address] Social History Tobacco Use Types Packs/Day Years [...] Diagnosis Comments DERMATOPATHOLOGY Routine 05/27/2024 9:50 AM GANTRY CRANE OPERATOR documented in this encounter Results * DERMATOPATHOLOGY (05/27/2024 9:50 AM GANTRY CRANE OPERATOR) Case Report Dermatopathology Report Case: [id number] Authorizing Provider: Kim Hodge DO Collected: 05/27/2024 09:50 AM Ordering Location: [facility] - Received: 05/28/2024 10:15 AM DermPath Lab Pathologist: Taylor Kingsley MD Specimen: Skin, left forearm 12:15 PM GANTRY CRANE OPERATOR DERMATOPATHOLOGY LABORATORY Final Diagnosis Specimen A. SKIN, left forearm: SOLAR LENTIGO (L81.4) 12:15 PM [facility] DERMATOPATHOLOGY LABORATORY at 1215 GANTRY CRANE OPERATOR Clinical History Nevus R/O MM 12:15 PM [facility] DERMATOPATHOLOGY LABORATORY Gross Description Specimen A: Received is one formalin filled container labeled with the patient's name and designated left forearm. The specimen consists of a shave biopsy measuring 6x5x1 mm. Jar 0. 12:15 PM [facility] DERMATOPATHOLOGY LABORATORY Microscopic Description Specimen A. SKIN, left forearm: There is orthokeratosis. There is a slight increase in epidermal thickness with lentiginous buds of hyperpigmented keratinocytes. The number of melanocytes is only mildly increased. In the dermis, there is basophilic degeneration of elastic fibers. 12:15 PM [facility] DERMATOPATHOLOGY LABORATORY Disclaimer An external and internal positive and negative controls are appropriate for the histochemical, immunohistochemical and immunofluorescence stain(s) in this case (if any), except where stated explicitly. The performance characteristics of the stain(s) cited in this report were developed and its performance characteristic determined by the Dermatopathology Laboratory at [facility], directed by Dr. Johnathan Zacarias. These tests need not be, and therefore are not, approved by the [place] Food and Drug Administration. The tests are used for clinical purposes. Billing Codes Specimen Charges Stain Charges 86174 1 12:15 PM [facility] DERMATOPATHOLOGY LABORATORY Embedded Images 12:15 PM [facility] DERMATOPATHOLOGY LABORATORY Pathology/Cytolo gy TISSUE SPECIMEN FROM SKIN / Unknown 05/27/2024 9:50 AM GANTRY CRANE OPERATOR 05/28/2024 10:15 AM [facility] us Kim Hodge DO LAB - PATHOLOGY/CYTOLOGY ORDERABLES Final Result DERMATOPATHOLOGY LABORATORY [facility] - Department of Dermatology [address], [address] [phone] documented in this encounter Visit Diagnoses Not on filedocumented in this encounter Care Teams Player Piano Technician Relationship Specialty Start Date End Date Cornelio Massey MD [facility] [place] [address] PCP - General Internal Medicine 02/19/20 documented as of this encounter
--- OUTSIDE RECORDS SUMMARY | 2024-11-19 03:08 | XMS_ITS | Continuity of Care Document ---
Author Organization [facility] Address [address] [place] [phone] Phone Care Team Providers Care Associate Professor Of Anthropology Name Role Phone Cole BUCKLEY, FACC, Cecy Unavailable Unavailab le Allergies, Adverse Reactions, Alerts Substance Reaction Status Criticality No Known Allergies Active No Inform ation Medications Medication Instructions Dosage Effective Dates (start - stop) Status Comments rosuvastatin 20 mg tablet take 1 tablet by oral route every day 20 MG - Active stop pravastatin Novolog U-100 Insulin aspart 100 unit/mL subcutaneous solution INJECT 60 UNITS VIA PUMP DAILY - Active levothyroxine 50 mcg tablet - Active lisinopril 20 mg tablet TAKE 1 TABLET BY MOUTH DAILY - Active meloxicam 7.5 mg tablet TAKE 1 TABLET BY MOUTH DAILY - Active Glucagon Emergency Kit 1 mg solution for injection USE FOR SEVERE HYPOGLYCEMIA - Active neomycin 3.5 mg/g-polymyxin B 10,000 unit/g-dexameth 0.1 % eye oint APPLY 1/4 INCH STRIP IN RIGHT EYE EVERY NIGHT - Active Lantus Solostar U-100 Insulin 100 unit/mL (3 mL) subcutaneous pen - Active prednisolone acetate 1 % eye drops,suspension instill 1 drop by ophthalmic route 2 times every day into affected eye(s) 1.00 drop - Active pravastatin 40 mg tablet TAKE 1 TABLET BY MOUTH IN THE EVENING - No Longer Active Procedures Procedure Date Complex e/m visit add on OFFICE/OUTPATIENT VISIT, NEW ELECTROCARDIOGRAM, COMPLETE Advance Directives Directive Yes / No Effective Date File Name No Information Encounters Encounter Description Practice Location Reason(s) For Visit Diagnoses Date Provider Providers Copied on Encounter OFFICE/OUTPA TIENT VISIT, [facility], [address] [facility], [place], [place], [id number] , tel: [phone] [facility] SOB and rapid HR on exertion (chief complaint) DyspneaHTNHyperlipide miaPalpitationsDM type IIHypothyroidism, unspecifiedAbnormal EKG Cole Cecy. [address] [place] [address], [place], [place], [id number] , [place]. tel: [phone] Referring Provider: Cornelio Massey, [address] [facility] [address], [place], [address]. tel:[phone] Family History Family Member Type Diagnosis Age At Onset No Information Payers Payer name Insurance type Covered republican ID Authoriza tikate(s) [place] [id number] [facility] [id number] Social History Type Description Quantity Date Captured Comments Alcohol Use Details 3 drinks weekly Caffeine Use Details coffee 2 cups per day Tobacco Use Status Current non-smoker Smoking Status Never smoker Non-Smoking Tobacco Use Details : No Details Available : No Details Available Sex Female Vital Signs Date / Time: Height Weight BMI Pulse Rate Blood Pressure Temperature Respiratory Rate Body Surface Area Head Circumference Head Circ. Percentile Wt./Romulo. Percentile BMI percentile Pulse Ox Inhaled Ox 10:10 AM 62.50 in 66.587 kg (146.80 lbs) 26.4 2 kg/m eter (2) 82 /min 152/94 mm[Hg] 98 % Chief Complaint And Reason For Visit From encounter dated '11/18/2024 10:00'. SOB and rapid HR on exertion (chief complaint) Reason For Referral Reason For Referral No Information Plan Of Treatment Date Type Action Status Appointment Jessy Valle BOOKED Appointment Jessy Valle BOOKED Appointment Jessy Valel BOOKED Appointment Jessy Valle BOOKED Future Order: Radiology Order Ec hocardiogram, Complete Transthoracic ([id number]), Ordered on: Ordered Future Order: Radiology Order CT Cardiac CT Calcium Score (CASCOR) ([id number]), Ordered on: Ordered Future Order: Radiology Order St ress Imaging Camera ([id number]), Ordered on: Ordered History Of Present Illness Encounter Date Complaint History Of Prese nt Illness SOB and rapid HR on exertion Functional Status Date Functional Assessmen t No Information Instructions Date Instruction Additional Infor mation No Information Assessments Type Assessment Date assessment Dyspnea assessment HTN assessment Hyperlipidemia assessment Palpitations assessment DM type II assessment Hypothyroidism, unspecified assessment Abnormal EKG Patient Care Teams Name Effective Dates (start - stop) Status Members No Information
--- OUTSIDE RECORDS SUMMARY | 2024-11-19 03:08 | XMS_ITS | Encounter Summary ---
Author Organization [facility] Address [address] [place] [address] [place] [address] Care Team Providers Care Assistant Tennis Professional Name Role Phone Cornelio Massey MD Primary Care Provider [phone] Encounter Details Date Type Department Care Team [...] on filedocumented in this encounter Care Teams Assistant Tennis Professional Relationship Specialty Start Date End Date Cornelio Massey MD [address] [place] [phone] PCP - General Internal Medicine 02/19/20 documented as of this encounter
--- OUTSIDE RECORDS SUMMARY | 2024-11-19 03:08 | XMS_ITS | Referral Summary ---
Author Organization [facility] [address] Address [address] [place] [address] Care Team Providers Care Inventory Control Assistant Name Role Phone Cornelio Massey MD Primary Care Provider Encounters Date Type Department Care Team Description 10/28/2024 1:00 PM CDT Office Visit [facility] [address] [place] [address] [address] [place] [phone] Type 2 diabetes mellitus with other specified complication, without long-term current use of insulin (HCC) 10/28/2024 2:15 PM CDT Office Visit [facility] [address] [place] [address] [place] [address] [address] Dallas Lee MD Type 1 diabetes mellitus without complication (HCC) (Primary Dx); Essential hypertension, benign; Mixed hyperlipidemia; Dyspnea on exertion from Last 3 Months Allergies No known active allergies Medications pravastatin (PRAVACHOL) 40 mg tablet Take 1 tablet (40 mg total) by mouth daily Active lisinopriL (PRINIVIL,ZEST RIL) 20 mg tablet Take 1 tablet (20 mg total) by mouth daily Active meloxicam (MOBIC) 7.5 mg tablet Take 1 tablet (7.5 mg total) by mouth daily Active calcium carbonate-francia min D3 600 mg (1,500 mg)-800 unit tablet,chewabl e Take 600 mg by mouth daily Active blood glucose diagnostic (Accu-Chek Guide test strips) strip USE TO TEST BLOOD SUGAR TWO TIMES DAILY 200 strip 1 4 Active NovoLOG 100 unit/mL vial for injectionIndic ations:Type 2 diabetes mellitus with other specified complication, without long-term current use of insulin INJECT 60 UNITS VIA PUMP DAILY Diagnosis code E 10.9 50 mL 3 4 Active glucagon (GlucaGen HypoKit) 1 mg kit Diagnosis code E10.9 for severe hypoglycemia 1 kit 3 4 Active levothyroxine (SYNTHROID) 50 mcg tablet TAKE 1 TABLET(50 MCG) BY MOUTH NUT SHELLER BEFORE BREAKFAST 90 tablet 3 5 Active insulin glargine 100 unit/mL (3 mL) pen for injection Take 12 units every 24 hrs if pump fails. 6 mL 3 5 Active insulin glargine 100 unit/mL (3 mL) pen for injection Inject 14 Units under the skin daily 15 mL 4 025 Discontin ued(Reord er) Active Problems Problem Noted Date Diagnosed Date Dyspnea on exertion 10/28/2024 Assessment & Plan (10/28/2024 3:58 PM CDT): I recommended that she contact her PCP's office to schedule an appointment within the next week or two to address this. She may need a stress test. Type 1 diabetes mellitus without complication Assessment & Plan (10/28/2024 3:57 PM CDT): A1c at goal on current therapy. Labs due next time. Eye exams are up to date. There is no evidence of neuropathy. Assessment & Plan (07/29/2024 12:50 PM CDT): A1c at goal on current therapy. I re-emphasized accurate and timely bolusing. Continue routine eye exams. No neuropathy symptoms. Labs due in October. Assessment & Plan (04/29/2024 10:41 AM SPANISH INTERPRETER): A1c at goal on current therapy. Continue [...] therapy. Assessment & Plan (04/27/2023 9:07 AM SPANISH INTERPRETER): A1c at goal on current therapy. Assessment & Plan (10/19/2022 9:46 AM CDT): A1c at goal on current therapy. Labs due today. Assessment & Plan (07/24/2022 12:57 PM CDT): A1c above goal. Tighten ICR with dinner from 6.0 to 5.5. Set temp target with exercise. She met with our CDE today. Assessment & Plan (04/18/2022 10:24 AM SPANISH INTERPRETER): A1c slightly above goal, but review of [...] exams. Assessment & Plan (03/15/2021 10:31 AM SPANISH INTERPRETER): A1c near goal. CGM shows TIR above 70%. I would not make any changes to her pump settings today. She will meet with our CDE today to discuss strategies to avoid hypoglycemia with and shortly after exercise. I recommended trying an Extend Bar. Labs are up to date. Eye exams current. Hypothyroidism, adult 06/11/2020 Essential hypertension, benign 06/11/2020 Assessment & Plan (10/28/2024 3:57 PM CDT): At goal on current therapy. Assessment & Plan (07/29/2024 9:57 AM CDT): At goal on current therapy. Assessment & Plan (04/29/2024 9:51 AM SPANISH INTERPRETER): At goal on current therapy. Assessment & Plan (01/25/2024 10:28 AM CDT): At goal on current therapy. Assessment & Plan (11/05/2023 4:13 PM CDT): Mildly elevated today. Will monitor. Assessment & Plan (07/31/2023 11:32 AM CDT): At goal on current therapy. Assessment & Plan (04/27/2023 9:06 AM SPANISH INTERPRETER): At goal on current therapy. Assessment & Plan (01/25/2023 2:28 PM CDT): At goal on current therapy. Assessment & Plan (10/19/2022 9:46 AM CDT): At goal on current therapy. Assessment & Plan (07/24/2022 12:56 PM CDT): At goal on current therapy. Assessment & Plan (04/18/2022 10:23 AM SPANISH INTERPRETER): At goal on current therapy. Assessment & Plan (10/04/2021 11:33 AM CDT): At goal on current therapy. Assessment & Plan (06/28/2021 6:37 PM CDT): At goal on current therapy. Assessment & Plan (03/15/2021 10:30 AM SPANISH INTERPRETER): Blood pressure normal today. Hyperlipidemia 06/11/2020 Assessment & Plan (10/28/2024 3:57 PM CDT): At goal on current therapy. Assessment & Plan (07/29/2024 9:56 AM CDT): At goal on current therapy. Assessment & Plan (04/29/2024 10:41 AM SPANISH INTERPRETER): Due for lipids. Continue pravastatin. Assessment & Plan (01/25/2024 10:28 AM CDT): At goal on current therapy. Assessment & Plan (11/05/2023 4:13 PM CDT): At goal on current therapy. Assessment & Plan (07/31/2023 11:30 AM CDT): At goal on current therapy. Assessment & Plan (04/27/2023 9:06 AM SPANISH INTERPRETER): Check lipids. Continue pravastatin. Assessment & Plan (01/25/2023 2:28 PM CDT): At goal on current therapy. Assessment & Plan (10/19/2022 9:46 AM CDT): At goal on current therapy. Assessment & Plan (07/24/2022 12:56 PM CDT): Continue statin. Assessment & Plan (04/18/2022 10:23 AM SPANISH INTERPRETER): At goal on current therapy. Assessment & Plan (10/04/2021 11:33 AM CDT): At goal on current therapy. Assessment & Plan (06/28/2021 6:37 PM CDT): At goal on current therapy. Assessment & Plan (03/15/2021 10:30 AM SPANISH INTERPRETER): LDL slightly above goal. Recommend diet and [...] on file Legal Sex Female 1:42 AM SPANISH INTERPRETER Gender Identity Female 10/12/2022 7:36 AM CDT Sexual Orientation Not on file Last Filed Vital Signs Vital Sign Reading Time Taken Comments Blood Pressure 120/80 10/28/2024 2:41 PM CDT Pulse 61 10/28/2024 2:41 PM CDT Temperature - - Respiratory Rate - - Oxygen Saturation 98% 10/28/2024 2:41 PM CDT Inhaled Oxygen Concentration - - Weight 67.1 kg (148 lb) 10/28/2024 2:41 PM CDT Height 162.6 cm (5' 4) 10/28/2024 2:41 PM CDT Body Mass Index 25.4 10/28/2024 2:41 PM CDT Plan of Treatment Not on file Procedures Procedure Name Priority Date/Time Associated Diagnosis Comments POCT HEMOGLOBIN A1C Routine 10/28/2024 3 :06 PM CDT Type 1 diabetes mellitus without complication (HCC) LIPID PANEL Routine 05/06/2024 9:12 AM SPANISH INTERPRETER Mixed hyperlipidemia COMPREHENSIVE METABOLIC PANEL Routine 11/07/2023 11:01 AM CDT Type 1 diabetes mellitus without complication (HCC) ALBUMIN CREATININE RATIO, URINE Routine 11/07/2023 11:01 AM CDT Type 1 diabetes mellitus without complication (HCC) THYROID FUNCTION CASCADE Routine 11/07/2023 11:01 AM CDT Type 1 diabetes mellitus without complication (HCC) from Last 3 Months or Most Recently Relevant to Health Maintenance Results * (ABNORMAL) POCT hemoglobin A1c (10/28/2024 3:06 PM CDT) Pathologist [facility] Hemoglobin A1C, POC 6.8(A) 4.0 - 5.6 % Capillary blood 10/28/2024 3 :06 PM CDT Dallas Lee MD POINT OF CARE TEST ABRAM KLINE Final Result * (ABNORMAL) Lipid panel (05/06/2024 9:12 AM SPANISH INTERPRETER) Cholesterol 200(H) 100 - 199 mg/dL [facility] - 01 Triglycerides 52 0 - 149 mg/dL [facility] - 01 HDL Cholesterol 104 >39 mg/dL [facility] - 01 VLDL 10 5 - 40 mg/dL [facility] - 01 LDL, calculated 86 0 - 99 mg/dL [facility] - 01 Blood 05/06/2024 9:12 AM SPANISH INTERPRETER 05/06/2024 Narrative [facility] - 05/07/2024 3:35 AM SPANISH INTERPRETER Performed at: [address] [place] [id number] Entry Clerk: Kevin Villareal PhD, Phone: [phone] Dallas Lee MD LAB BLOOD ORDERABLES Fi nal Result Performing Organization Address [facility] de Phone Number [facility] * Thyroid Function [place] (11/07/2023 11:01 AM CDT) TSH 0.561 0.450 - 4.500 uIU/mL [facility] - 01 Comment: No apparent thyroid disorder. Additional testing not indicated. In rare instances, Secondary Hypothyroidism as well as Subclinical Hypothyroidism have been reported in some patients with normal TSH values. Blood 11/07/2023 11:0 1 AM CDT 11/07/2023 Narrative [facility] - 11/08/2023 12:12 PM CDT Performed at: [address] [place] [id number] Entry Clerk: Kevni Villareal PhD, Phone: [phone] Dallas Lee MD LAB BLOOD ORDERABLES Fi nal Result Performing Organization Address [facility] Co de Phone Number [facility] - * Albumin Creatinine Ratio, Urine [...] - 11/08/2023 12:12 PM CDT Performed at: [address] [place] [address] [id number] Entry Clerk: Kevin Villareal PhD, Phone: [phone] us Dallas Lee MD LAB URINE ORDERABLES Fi nal Result [facility] - 01 * (ABNORMAL) Comprehensive metabolic [...] 11/08/2023 12:12 PM CDT Performed at: - [facility] [address] [id number] Entry Clerk: Kevin Villareal PhD, Phone: [phone] us Dallas Lee MD LAB BLOOD ORDERABLES Fi nal Result [facility] - 01 from Last 3 Months or Most Recently Relevant to Health Maintenance Insurance [facility] MEDICARE SUPPLEMENT Care Teams Inventory Control Assistant Relationship Specialty Start Date End Date Cornelio Massey MD [address] [facility] [address] [place] [address] PCP - General Internal Medicine 10/19/22
--- OUTSIDE RECORDS SUMMARY | 2024-11-19 03:08 | XMS_ITS | Clinical Summary ---
Author Organization [facility] [address] Address [address] [place] [address] Care Team Providers Care Dynamometer Tester Name Role Phone Cornelio Massey MD Primary [...] tablet TAKE 1 TABLET(50 MCG) BY MOUTH ACCOUNTS RECEIVABLE ASSOCIATE BEFORE BREAKFAST 90 tablet 3 5 Active [...] October. Assessment & Plan (04/29/2024 10:41 AM ANIMAL DAMAGE CONTROL AGENT): A1c at goal on current therapy. Continue [...] therapy. Assessment & Plan (04/27/2023 9:07 AM ANIMAL DAMAGE CONTROL AGENT): A1c at goal on current therapy. Assessment & Plan (10/19/2022 9:46 AM CDT): A1c at goal on current therapy. Labs due today. Assessment & Plan (07/24/2022 12:57 PM CDT): A1c above goal. Tighten ICR with dinner from 6.0 to 5.5. Set temp target with exercise. She met with our CDE today. Assessment & Plan (04/18/2022 10:24 AM ANIMAL DAMAGE CONTROL AGENT): A1c slightly above goal, but review of [...] exams. Assessment & Plan (03/15/2021 10:31 AM ANIMAL DAMAGE CONTROL AGENT): A1c near goal. CGM shows TIR above [...] therapy. Assessment & Plan (04/29/2024 9:51 AM ANIMAL DAMAGE CONTROL AGENT): At goal on current therapy. Assessment & Plan (01/25/2024 10:28 AM CDT): At goal on current therapy. Assessment & Plan (11/05/2023 4:13 PM CDT): Mildly elevated today. Will monitor. Assessment & Plan (07/31/2023 11:32 AM CDT): At goal on current therapy. Assessment & Plan (04/27/2023 9:06 AM ANIMAL DAMAGE CONTROL AGENT): At goal on current therapy. Assessment & Plan (01/25/2023 2:28 PM CDT): At goal on current therapy. Assessment & Plan (10/19/2022 9:46 AM CDT): At goal on current therapy. Assessment & Plan (07/24/2022 12:56 PM CDT): At goal on current therapy. Assessment & Plan (04/18/2022 10:23 AM ANIMAL DAMAGE CONTROL AGENT): At goal on current therapy. Assessment & Plan (10/04/2021 11:33 AM CDT): At goal on current therapy. Assessment & Plan (06/28/2021 6:37 PM CDT): At goal on current therapy. Assessment & Plan (03/15/2021 10:30 AM ANIMAL DAMAGE CONTROL AGENT): Blood pressure normal today. Hyperlipidemia 06/11/2020 Assessment & Plan (10/28/2024 3:57 PM CDT): At goal on current therapy. Assessment & Plan (07/29/2024 9:56 AM CDT): At goal on current therapy. Assessment & Plan (04/29/2024 10:41 AM ANIMAL DAMAGE CONTROL AGENT): Due for lipids. Continue pravastatin. Assessment & Plan (01/25/2024 10:28 AM CDT): At goal on current therapy. Assessment & Plan (11/05/2023 4:13 PM CDT): At goal on current therapy. Assessment & Plan (07/31/2023 11:30 AM CDT): At goal on current therapy. Assessment & Plan (04/27/2023 9:06 AM ANIMAL DAMAGE CONTROL AGENT): Check lipids. Continue pravastatin. Assessment & Plan (01/25/2023 2:28 PM CDT): At goal on current therapy. Assessment & Plan (10/19/2022 9:46 AM CDT): At goal on current therapy. Assessment & Plan (07/24/2022 12:56 PM CDT): Continue statin. Assessment & Plan (04/18/2022 10:23 AM ANIMAL DAMAGE CONTROL AGENT): At goal on current therapy. Assessment & Plan (10/04/2021 11:33 AM CDT): At goal on current therapy. Assessment & Plan (06/28/2021 6:37 PM CDT): At goal on current therapy. Assessment & Plan (03/15/2021 10:30 AM ANIMAL DAMAGE CONTROL AGENT): LDL slightly above goal. Recommend diet and [...] Date Type Department Care Team Description 10/28/2024 2:15 PM CDT Office Visit [facility] [address] [place] [address] [address] [place] [address] Dallas Lee MD Type 1 diabetes mellitus without complication (HCC) (Primary Dx); Essential hypertension, benign; Mixed hyperlipidemia; Dyspnea on exertion 10/28/2024 1:00 PM CDT Office Visit [facility] [address] [place] [address] [address] [place] [phone] Type 2 diabetes mellitus with other specified complication, without long-term current use of insulin (HCC) from Last 3 Months Immunizations Immunization [...] Medical No surgery Type 2 diabetes mellitus Diabete s type 2 Family History Medical History Relation [...] on file Legal Sex Female 1:42 AM ANIMAL DAMAGE CONTROL AGENT Gender Identity Female 10/12/2022 7:36 AM CDT [...] 10/28/2024 2:41 PM CDT Plan of Treatment Health Maintenance Due [...] 09/2022, 10/04/2021, Additional history exists Influenza Vaccine (#1) 2024 , 12/12/2019, 01/14/2019, Additional history exists Hemoglobin A1C 04/30/2025 10/28/2024, 04/1 08/2024, 04/29/2024, Additional history exists Lipid Panel 05/06/2025 05/06/2024, 04/16, 04/18/2022, Additional history exists Pneumococcal vaccine 65+ Completed 07/11/2022, 11/15 Hepatitis C Screening Discontinued Procedures Procedure Name Priority Date/Time Associated Diagnosis Comments POCT HEMOGLOBIN A1C Routine 10/28/2024 3 :06 PM CDT Type 1 diabetes mellitus without complication (HCC) LIPID PANEL Routine 05/06/2024 9:12 AM ANIMAL DAMAGE CONTROL AGENT Mixed hyperlipidemia COMPREHENSIVE METABOLIC PANEL Routine 11/07/2023 [...] hemoglobin A1c (10/28/2024 3:06 PM CDT) Pathologist [facility] Hemoglobin A1C, POC 6.8(A) 4.0 - 5.6 % Capillary blood 10/28/2024 3 :06 PM CDT Dallas Lee MD POINT OF CARE TEST ABRAM KLINE Final Result * (ABNORMAL) Lipid panel (05/06/2024 9:12 AM ANIMAL DAMAGE CONTROL AGENT) Cholesterol 200(H) 100 - 199 mg/dL [facility] - 01 Triglycerides 52 0 - 149 mg/dL [facility] - 01 HDL Cholesterol 104 >39 mg/dL [facility] - 01 VLDL 10 5 - 40 mg/dL [facility] - 01 LDL, calculated 86 0 - 99 mg/dL [facility] - 01 Blood 05/06/2024 9:12 AM ANIMAL DAMAGE CONTROL AGENT 05/06/2024 Narrative [facility] - 05/07/2024 3:35 AM ANIMAL DAMAGE CONTROL AGENT Performed at: [address] [place] [id number] Institutional Aide: Kevin Villareal PhD, Phone: [phone] Dallas Lee MD LAB BLOOD ORDERABLES Fi nal Result Performing Organization Address [facility] de Phone Number [facility] - * Thyroid Function [place] (11/07/2023 11:01 AM CDT) TSH 0.561 0.450 - 4.500 uIU/mL [facility] - 01 Comment: No apparent thyroid disorder. Additional testing not indicated. In rare instances, Secondary Hypothyroidism as well as Subclinical Hypothyroidism have been reported in some patients with normal TSH values. Blood 11/07/2023 11:0 1 AM CDT 11/07/2023 Narrative [facility] - 11/08/2023 12:12 PM CDT Performed at: [address] [id number] Institutional Aide: Kevin Villareal PhD, Phone: [phone] Dallas Lee MD LAB BLOOD ORDERABLES Fi nal Result Performing Organization Address [facility] de Phone Number [facility] - * Albumin Creatinine Ratio, [...] - 11/08/2023 12:12 PM CDT Performed at: [address] [id number] Institutional Aide: Kevin Villareal PhD, Phone: [phone] us Dallas Lee MD LAB URINE ORDERABLES Fi nal Result Performing Organization Address [facility]/State/ZIP Co de Phone Number [facility] - 01 * (ABNORMAL) Comprehensive [...] - 11/08/2023 12:12 PM CDT Performed at: [facility] - [facility] [address] [place], [place] [id number] Institutional Aide: Kevin Villareal PhD, Phone: [phone] Dallas Lee MD LAB BLOOD ORDERABLES Fi nal Result [facility] - 01 from Last 3 Months or Most Recently Relevant to Health Maintenance Insurance MEDICARE [facility] MEDICARE SUPPLEMENT Care Teams Dynamometer Tester Relationship Specialty Start Date End Date Cornelio Massey MD [address] [facility] [address] [place] [address] PCP - General Internal Medicine 10/19/22
--- OUTSIDE RECORDS SUMMARY | 2024-11-19 03:08 | XMS_ITS | Clinical Summary ---
Author Organization [facility] [employer] Address [facility] [facility] [address] [place] [address] Care Team Providers Care Nutrition Program Instructor Name Role Phone Cornelio Massey MD Primary Care Provider [phone] Source Comments [facility] [employer],non-owned Affiliates and Associated Physician Practices is amultiple site organization consisting of ambulatory clinics and hospital sitesin [place], [place], [place] and [place]. This disclosure is being madepursuant to the Care Everywhere program and may not contain all information available regarding this patient. Last updated 18.[facility] [employer] Allergies No known active allergies Medications * [...] 66.7 kg (147 lb) 02/19/2020 11:06 AM HOME OFFICE CLAIMS EXAMINER Height 157.5 cm (5' 2) 02/19/2020 11:06 AM HOME OFFICE CLAIMS EXAMINER Body Mass Index 26.89 02/19/2020 11:06 AM HOME OFFICE CLAIMS EXAMINER Plan of Treatment Health Maintenance Due Date [...] season) 2023 DEPRESSION SCREENING 04/16/2024 INFLUENZA VACCINE (#1) 2024 02/07/2013 Respiratory Syncytial Virus (RSV) Vaccine Pt: or [...] age to complete this topic Insurance MEDICARE [facility] MEDICARE [facility] Care Teams Nutrition Program Instructor Relationship Specialty Start Date End Date Cornelio Massey MD [address] [place] [address] PCP - General Internal Medicine 02/19/20
--- NOTE | 2024-11-19 07:21 | SUR.PREOP ---
This patient had to cancel her colonoscopy today because she was unable to tolerate the bowel prep. Pt. instructed to contact her PCP and consider alternate bowel prep options. Pt. verbalized understanding.
--- NOTE | 2024-11-19 16:29 | PC.NURSE ---
Spoke with patient regarding her not tolerating the prep. She only took the bisacodyl tablets- vomited them within 10 min. she repeated these and vomited within 30 minutes. She states she has had problems in the past with taking preps, so after review she is ordered Suprep, she is very anxious about getting sick again, ondansetron 4mg tablets is ordered with instruction that she will take one tablet 30 min. prior to taking each dose of suprep and then Q6h prn.
--- OUTSIDE RECORDS SUMMARY | 2024-12-01 00:25 | XMS_ITS | Encounter Summary ---
Author Organization [facility] Health Address [facility] [facility] [place] [address] Care Team Providers Care Dry Plasterer Name Role Phone Cornelio Massey MD Primary Care Provider [phone] Encounter Details Date Type Department Care Team [...] on filedocumented in this encounter Care Teams Dry Plasterer Relationship Specialty Start Date End Date Cornelio Massey MD [address] [place] [address] PCP - General Internal Medicine 02/19/20 documented as of this encounter
--- OUTSIDE RECORDS SUMMARY | 2024-12-01 00:25 | XMS_ITS | Encounter Summary ---
Author Organization [facility] Health Address [address] [place] [address] [place] [address] Care Team Providers Care Slicing Machine Operator/Tender Name Role Phone Cornelio Massey MD Primary Care Provider [phone] Encounter Details Date Type Department Care Team [...] on filedocumented in this encounter Care Teams Slicing Machine Operator/Tender Relationship Specialty Start Date End Date Cornelio Massey MD [address] [place] [phone] PCP - General Internal Medicine 02/19/20 documented as of this encounter
--- OUTSIDE RECORDS SUMMARY | 2024-12-01 00:25 | XMS_ITS | Continuity of Care Document ---
Author Organization [facility] Address [address] [place] [phone] Phone Care Team Providers Care Night Guard Name Role Phone Cole BUCKLEY, FACC, Cecy [...] Providers Copied on Encounter OFFICE/OUTPA TIENT VISIT, [facility], [address] [facility], [place], [place], [id number] , tel: [phone] [facility] SOB and rapid HR on exertion (chief complaint) DyspneaHTNHyperlipide miaPalpitationsDM type IIHypothyroidism, unspecifiedAbnormal EKG Cole Cecy. [address] [place] [address], [place], [place], [id number] , [place]. tel: [phone] Referring Provider: Cornelio Massey, [address] [facility] [address], [place], [address]. tel:[phone] Family History Family Member Type Diagnosis Age At Onset No Information Payers Payer name Insurance type Covered republican ID Authorjordana rocky(s) [place] MED[place] [id number] [facility] CI [id number] Social History Type Description Quantity Date Captured [...] BOOKED Appointment Jessy Valle BOOKED Appointment Jessy Valle BOOKED Appointment Jessy Valle BOOKED Future Order: Radiology Order Ec hocardiogram, Complete Transthoracic ([id number]), Ordered on: Ordered Future Order: Radiology Order CT Cardiac CT Calcium Score (CASCOR) ([id number]), Ordered on: Ordered Future Order: Radiology Order St ress Imaging Camera ([id number]), Ordered on: Ordered History Of Present Illness [...]
--- OUTSIDE RECORDS SUMMARY | 2024-12-01 00:25 | XMS_ITS | Encounter Summary ---
Author Organization [facility] Address [address] [facility] [place] [address] Care Team Providers Care Single Pass Soil Stabilizer Operator Name Role Phone Cornelio Massey MD Primary Care Provider [phone] Encounter Details Date Type Department Care Team (Late st Contact Info) Description 05/22/2023 Lab Requisition [facility] Lab [address] [facility] [place] [address] Kim Hodge DO [address] [facility] [address] [place] [address] Social History Tobacco Use Types Packs/Day Years [...] Comments DERMATOPATHOLOGY Routine 05/22/2023 10:0 6 AM MECHANICAL MAINTENANCE documented in this encounter Results * DERMATOPATHOLOGY (05/22/2023 10:06 AM MECHANICAL MAINTENANCE) Case Report Dermatopathology Report Case: [id number] Authorizing Provider: Kim Hodge DO Collected: 05/22/2023 10:06 AM Ordering Location: [facility] Received: 05/23/2023 08:22 AM Pathologist: Rakesh Zacarias MD Specimen: Skin, right ant LE 5:09 PM MECHANICAL MAINTENANCE DERMATOPATHOLOGY LABORATORY Final Diagnosis Specimen A. SKIN, right ant LE: SOLAR LENTIGO (L81.4) 4 5:09 PM [facility] DERMATOPATHOLOGY LABORATORY at 1709 MECHANICAL MAINTENANCE Clinical History Nevus R/O atypia 4 5:09 PM [facility] DERMATOPATHOLOGY LABORATORY Gross Description Specimen A: Received is one formalin filled container labeled with the patient's name and designated right ant LE. The specimen consists of a shave biopsy measuring 5x5x1 mm. Jar 0. 4 5:09 PM [facility] DERMATOPATHOLOGY LABORATORY Microscopic Description Specimen A. SKIN, right ant LE: There is orthokeratosis. There is a slight increase in epidermal thickness with lentiginous buds of hyperpigmented keratinocytes. The number of melanocytes is only mildly increased. In the dermis, there is basophilic degeneration of elastic fibers. 5:09 PM [facility] DERMATOPATHOLOGY LABORATORY Disclaimer An external and internal positive and negative controls are appropriate for the histochemical, immunohistochemical and immunofluorescence stain(s) in this case (if any), except where stated explicitly. The performance characteristics of the stain(s) cited in this report were developed and its performance characteristic determined by the Dermatopathology Laboratory at [facility], directed by Dr. Johnathan Zacarias. These tests need not be, and therefore are not, approved by the [place] Food and Drug Administration. The tests are used for clinical purposes. Billing Codes Specimen Charges Stain Charges 43640 1 4 5:09 PM [facility] DERMATOPATHOLOGY LABORATORY Embedded Images 4 5:09 PM [facility] DERMATOPATHOLOGY LABORATORY Pathology/Cytolo gy TISSUE SPECIMEN FROM SKIN / Unknown 05/22/2023 10:06 AM MECHANICAL MAINTENANCE 05/23/2023 8:22 AM MECHANICAL MAINTENANCE us Kim Hodge DO LAB - PATHOLOGY/CYTOLOGY ORDERABLES Final Result DERMATOPATHOLOGY LABORATORY [facility] - Department of Dermatology [address] [phone] documented in this encounter Visit Diagnoses Not on filedocumented in this encounter Care Teams Single Pass Soil Stabilizer Operator Relationship Specialty Start Date End Date Cornelio Massey MD [address] [place] [address] PCP - General Internal Medicine 02/19/20 documented as of this encounter
--- OUTSIDE RECORDS SUMMARY | 2024-12-01 00:25 | XMS_ITS | Encounter Summary ---
Author Organization [facility] Health Address [address] [place] [address] [place] [address] Care Team Providers Care Odd Ticket Clerk Name Role Phone Cornelio Massey MD Primary Care Provider [phone] Encounter Details Date Type Department Care Team [...] on filedocumented in this encounter Care Teams Odd Ticket Clerk Relationship Specialty Start Date End Date Cornelio Massey MD [address] [place] [phone] PCP - General Internal Medicine 02/19/20 documented as of this encounter
--- OUTSIDE RECORDS SUMMARY | 2024-12-01 00:25 | XMS_ITS | Clinical Summary ---
Author Organization [facility] [address] Address [address] [place] [address] Care Team Providers Care Elementary Librarian Name Role Phone Cornelio Massey MD Primary [...] tablet TAKE 1 TABLET(50 MCG) BY MOUTH SECONDARY SCHOOL TEACHER BEFORE BREAKFAST 90 tablet 3 5 Active insulin glargine 100 unit/mL (3 mL) pen for injection Take 12 units every 24 hrs if pump fails. 6 mL 3 5 Active Active Problems Problem Noted [...] October. Assessment & Plan (04/29/2024 10:41 AM DETECTIVE SERGEANT): A1c at goal on current therapy. Continue [...] therapy. Assessment & Plan (04/27/2023 9:07 AM DETECTIVE SERGEANT): A1c at goal on current therapy. Assessment & Plan (10/19/2022 9:46 AM CDT): A1c at goal on current therapy. Labs due today. Assessment & Plan (07/24/2022 12:57 PM CDT): A1c above goal. Tighten ICR with dinner from 6.0 to 5.5. Set temp target with exercise. She met with our CDE today. Assessment & Plan (04/18/2022 10:24 AM DETECTIVE SERGEANT): A1c slightly above goal, but review of [...] exams. Assessment & Plan (03/15/2021 10:31 AM DETECTIVE SERGEANT): A1c near goal. CGM shows TIR above [...] therapy. Assessment & Plan (04/29/2024 9:51 AM DETECTIVE SERGEANT): At goal on current therapy. Assessment & Plan (01/25/2024 10:28 AM CDT): At goal on current therapy. Assessment & Plan (11/05/2023 4:13 PM CDT): Mildly elevated today. Will monitor. Assessment & Plan (07/31/2023 11:32 AM CDT): At goal on current therapy. Assessment & Plan (04/27/2023 9:06 AM DETECTIVE SERGEANT): At goal on current therapy. Assessment & Plan (01/25/2023 2:28 PM CDT): At goal on current therapy. Assessment & Plan (10/19/2022 9:46 AM CDT): At goal on current therapy. Assessment & Plan (07/24/2022 12:56 PM CDT): At goal on current therapy. Assessment & Plan (04/18/2022 10:23 AM DETECTIVE SERGEANT): At goal on current therapy. Assessment & Plan (10/04/2021 11:33 AM CDT): At goal on current therapy. Assessment & Plan (06/28/2021 6:37 PM CDT): At goal on current therapy. Assessment & Plan (03/15/2021 10:30 AM DETECTIVE SERGEANT): Blood pressure normal today. Hyperlipidemia 06/11/2020 Assessment & Plan (10/28/2024 3:57 PM CDT): At goal on current therapy. Assessment & Plan (07/29/2024 9:56 AM CDT): At goal on current therapy. Assessment & Plan (04/29/2024 10:41 AM DETECTIVE SERGEANT): Due for lipids. Continue pravastatin. Assessment & Plan (01/25/2024 10:28 AM CDT): At goal on current therapy. Assessment & Plan (11/05/2023 4:13 PM CDT): At goal on current therapy. Assessment & Plan (07/31/2023 11:30 AM CDT): At goal on current therapy. Assessment & Plan (04/27/2023 9:06 AM DETECTIVE SERGEANT): Check lipids. Continue pravastatin. Assessment & Plan (01/25/2023 2:28 PM CDT): At goal on current therapy. Assessment & Plan (10/19/2022 9:46 AM CDT): At goal on current therapy. Assessment & Plan (07/24/2022 12:56 PM CDT): Continue statin. Assessment & Plan (04/18/2022 10:23 AM DETECTIVE SERGEANT): At goal on current therapy. Assessment & Plan (10/04/2021 11:33 AM CDT): At goal on current therapy. Assessment & Plan (06/28/2021 6:37 PM CDT): At goal on current therapy. Assessment & Plan (03/15/2021 10:30 AM DETECTIVE SERGEANT): LDL slightly above goal. Recommend diet and [...] Description 10/28/2024 2:15 PM CDT Office Visit [facility] [address] [place] [address] [place] [phone] Dallas Lee MD Type 1 diabetes mellitus without complication (HCC) (Primary Dx); Essential hypertension, benign; Mixed hyperlipidemia; Dyspnea on exertion 10/28/2024 1:00 PM CDT Office Visit [facility] [address] [place] [address] [place] [phone] Type 2 diabetes mellitus with other [...] on file Legal Sex Female 1:42 AM DETECTIVE SERGEANT Gender Identity Female 10/12/2022 7:36 AM CDT [...] Additional history exists Hemoglobin A1C 04/30/2025 10/28/2024, 07/15, 04/29/2024, Additional history exists Lipid Panel 05/06/2025 05/06/2024, 04/16, 04/18/2022, Additional history exists Pneumococcal vaccine 65+ Completed 07/11/2022, 11/15 Hepatitis C Screening Discontinued Procedures Procedure Name Priority Date/Time Associated Diagnosis Comments POCT HEMOGLOBIN A1C Routine 10/28/2024 3 :06 PM CDT Type 1 diabetes mellitus without complication (HCC) LIPID PANEL Routine 05/06/2024 9:12 AM DETECTIVE SERGEANT Mixed hyperlipidemia COMPREHENSIVE METABOLIC PANEL Routine 11/07/2023 [...] POCT hemoglobin A1c (10/28/2024 3:06 PM CDT) Hemoglobin A1C, POC 6.8(A) 4.0 - 5.6 % Capillary blood 10/28/2024 3 :06 PM CDT Dallas Lee MD POINT OF CARE TEST ABRAM KLINE Final Result * (ABNORMAL) Lipid panel (05/06/2024 9:12 AM DETECTIVE SERGEANT) Cholesterol 200(H) 100 - 199 mg/dL [facility] - 01 Triglycerides 52 0 - 149 mg/dL [facility] - 01 HDL Cholesterol 104 >39 mg/dL [facility] - 01 VLDL 10 5 - 40 mg/dL [facility] - 01 LDL, calculated 86 0 - 99 mg/dL [facility] - 01 Blood 05/06/2024 9:12 AM DETECTIVE SERGEANT 05/06/2024 Narrative [facility] - 05/07/2024 3:35 AM DETECTIVE SERGEANT Performed at: [facility] [id number] Film Color Tester: Kevin Villareal PhD, Phone: [phone] Result [facility] Dallas Lee MD LAB BLOOD ORDERABLES Fi nal Result Performing Organization Address [facility] de Phone Number [facility] - * Thyroid Function [place] (11/07/2023 11:01 AM CDT) TSH 0.561 0.450 - 4.500 uIU/mL [facility] - 01 Comment: No apparent thyroid disorder. Additional testing not indicated. In rare instances, Secondary Hypothyroidism as well as Subclinical Hypothyroidism have been reported in some patients with normal TSH values. Blood 11/07/2023 11:0 1 AM CDT 11/07/2023 Narrative [facility] - 11/08/2023 12:12 PM CDT Performed at: [address] [place] [id number] Film Color Tester: Kevin Villareal PhD, Phone: [phone] Result [facility] Dallas Lee MD LAB BLOOD ORDERABLES Fi nal Result Performing Organization Address [facility] de Phone Number [facility] - 01 * Albumin Creatinine Ratio, [...] - 11/08/2023 12:12 PM CDT Performed at: [address] [place] [id number] Film Color Tester: Kevin Villareal PhD, Phone: [phone] Result [facility] Dallas Lee MD LAB URINE ORDERABLES Fi nal Result [facility] - 01 * (ABNORMAL) Comprehensive metabolic panel (11/07/2023 11:01 AM CDT) [facility] Glucose 107(H) 70 - 99 mg/dL [facility] [...] 12:12 PM CDT Performed at: 01 - [facility] [address] [id number] Film Color Tester: Kevin Villareal PhD, Phone: [phone] us Dallas Lee MD LAB BLOOD ORDERABLES Fi nal Result [facility] - 01 from Last 3 Months or Most Recently Relevant to Health Maintenance Insurance MEDICARE [facility] MEDICARE SUPPLEMENT Care Teams Elementary Librarian Relationship Specialty Start Date End Date Cornelio Massey MD [address] [facility] [place] [address] PCP - General Internal Medicine 10/19/22
--- OUTSIDE RECORDS SUMMARY | 2024-12-01 00:25 | XMS_ITS | Clinical Summary ---
Author Organization [facility] [employer] Address [facility] [facility] [address] [place] [address] Care Team Providers Care Career Placement Services Counselor Name Role Phone Cornelio Massey MD Primary Care Provider [phone] [facility] [employer] [facility] [employer],non-owned Affiliates and Associated Physician Practices is amultiple site organization consisting of ambulatory clinics and hospital sitesin [place], [place], [place] and [place]. This disclosure is being madepursuant to the Care Everywhere program and may not contain all information available regarding this patient. Last updated 18.[facility] [employer] [facility] [employer] Allergies No known active allergies Medications * [...] 66.7 kg (147 lb) 02/19/2020 11:06 AM DRILL PUNCH OPERATOR Height 157.5 cm (5' 2) 02/19/2020 11:06 AM DRILL PUNCH OPERATOR Body Mass Index 26.89 02/19/2020 11:06 AM DRILL PUNCH OPERATOR Plan of Treatment Health Maintenance Due Date [...] age to complete this topic Insurance MEDICARE [facility] MEDICARE [facility] Care Teams Career Placement Services Counselor Relationship Specialty Start Date End Date Cornelio Massey MD [address] [place] [address] PCP - General Internal Medicine 02/19/20
--- OUTSIDE RECORDS SUMMARY | 2024-12-01 00:25 | XMS_ITS | Encounter Summary ---
Author Organization [facility] Address [address] [facility] [place] [address] Care Team Providers Care Sub Arc Operator Name Role Phone Cornelio Massey MD Primary Care Provider [phone] Encounter Details Date Type Department Care Team (Late st Contact Info) Description 05/27/2024 Lab Requisition [facility] - Derm[facility] Lab [address] [facility] [place] [address] Kim Hodge DO [address] [facility] [address] [place] [address] Social History Tobacco Use Types Packs/Day Years [...] Diagnosis Comments DERMATOPATHOLOGY Routine 05/27/2024 9:50 AM FIBER DESIGNER documented in this encounter Results * DERMATOPATHOLOGY (05/27/2024 9:50 AM FIBER DESIGNER) Case Report Dermatopathology Report Case: [id number] Authorizing Provider: Kim Hodge DO Collected: 05/27/2024 09:50 AM Ordering Location: [facility] - Received: 05/28/2024 10:15 AM DermPath Lab Pathologist: Taylor Kingsley MD Specimen: Skin, left forearm 12:15 PM FIBER DESIGNER DERMATOPATHOLOGY LABORATORY Final Diagnosis Specimen A. SKIN, left forearm: SOLAR LENTIGO (L81.4) 12:15 PM [facility] DERMATOPATHOLOGY [facility]ORATORY at [address] FIBER DESIGNER Clinical History Nevus R/O MM 12:15 PM [facility] DERMATOPATHOLOGY LABORATORY Gross Description Specimen A: Received is one formalin filled container labeled with the patient's name and designated left forearm. The specimen consists of a shave biopsy measuring 6x5x1 mm. Jar 0. 12:15 PM [facility] DERMATOPATHOLOGY LABORATORY Microscopic Description Specimen A. SKIN, left forearm: There is orthokeratosis. There is a slight increase in epidermal thickness with lentiginous buds of hyperpigmented keratinocytes. The number of melanocytes is only mildly increased. In the dermis, there is basophilic degeneration of elastic fibers. 12:15 PM [facility] DERMATOPATHOLOGY LABORATORY Disclaimer An external and internal positive and negative controls are appropriate for the histochemical, immunohistochemical and immunofluorescence stain(s) in this case (if any), except where stated explicitly. The performance characteristics of the stain(s) cited in this report were developed and its performance characteristic determined by the Dermatopathology Laboratory at [facility], directed by Dr. Johnathan Zacarias. These tests need not be, and therefore are not, approved by the [place] Food and Drug Administration. The tests are used for clinical purposes. Billing Codes Specimen Charges Stain Charges 03706 1 12:15 PM [facility] DERMATOPATHOLOGY LABORATORY Embedded Images 12:15 PM [facility] DERMATOPATHOLOGY [facility]ORATORY Pathology/Cytolo gy TISSUE SPECIMEN FROM SKIN / Unknown 05/27/2024 9:50 AM FIBER DESIGNER 05/28/2024 10:15 AM [facility] us Kim Hodge DO LAB - PATHOLOGY/CYTOLOGY ORDERABLES Final Result DERMATOPATHOLOGY LABORATORY [facility] - Department of Dermatology [address] [phone] documented in this encounter Visit Diagnoses Not on filedocumented in this encounter Care Teams Sub Arc Operator Relationship Specialty Start Date End Date Cornelio Massey MD [facility] [place] [address] PCP - General Internal Medicine 02/19/20 documented as of this encounter
[2024-12-01 07:56] VITALS: BP 122/80; PULSE 78; RESP 16; TEMP 36.6; O2SAT 100; BMI 26.2
--- NOTE | 2024-12-01 07:58 | SUR.PREOP ---
Patient is wearing insulin pump. Blood glucose reading is 184. OK per anesthesia to use insulin pump.
[2024-12-01] MEDS: LACTATED RINGERS 1,000 ML 150 ML IV CONT (08:04)
--- NOTE | 2024-12-01 08:09 | WPDANESEPPF ---
Anes - Initial Pre Proc Eval Procedure: Operation Date: 12/01/24 09:00 Proposed Procedures p Screening Colonoscopy - Gilberto Del Valle MD Date/Time: 12/01/24 08:09 Surgeon: Gilberto Del Valle MD Pre Op Diagnosis: Encounter for screening for malignant neoplasm of Patient Data Age: 69 Gender: F Height: 1.57 m Weight: 65.1 kg Last Vital Signs Temp 36.6 C 12/01/24 07:56 Pulse 78 12/01/24 07:56 Resp 16 12/01/24 07:56 BP 122/80 12/01/24 07:56 Pulse Ox 100 12/01/24 07:56 O2 Del Method Room Air 12/01/24 07:56 Allergies Allergy/AdvReac Type Severity Reaction Status Date / Time No Known Allergies Allergy Unknown Verified 12/01/24 07:53 Home Medications ?Medication ?Instructions ?Recorded ?Confirmed ?Type lisinopril 20 mg tablet 20 mg PO DAILY 08/07/19 12/01/24 History meloxicam 7.5 mg tablet 7.5 mg PO DAILY 08/07/19 12/01/24 History pravastatin 40 mg tablet 40 mg PO DAILY 08/07/19 12/01/24 History subcutaneous insulin pump #1 ea 08/07/19 11/07/24 History levothyroxine 75 mcg tablet 0.05 mcg PO DAILY 02/26/23 12/01/24 History insulin aspart U-100 100 unit/mL 11/07/24 History subcutaneous solution (Novolog U-100 Insulin aspart) ondansetron HCl 4 mg tablet 4 mg PO Q6H PRN nausea and 11/19/24 Rx vomiting #4 tabs sodium,potassium,mag sulfates 17.5 See Rx Instructions PO .COMPLEX 11/19/24 Rx gram-3.13 gram-1.6 gram oral soln #354 mL (Suprep Bowel Prep Kit) Patient hx anesthesia problems: none Family hx anesthesia problems: none Results Review: All pre-operative results and documents have been reviewed as part of the pre-operative evaluation. [facility] Past Medical History Medical History Hypothyroidism Diabetes type 2, controlled Hypertension Hyperlipidemia Surgical History Surgical History History of tubal ligation Family History Family History Mother Melanoma Diabetes mellitus Hypertension Heart disease Social History Social History Smoking status: Never smoker Alcohol intake: current Substance use: never Substance use type: does not use Anes - Eval Final PreProcedure Day of Procedure 12/01/24 08:09 Patient weight: overweight Heart: regular rate and rhythm Lungs: clear to auscultation Airway: Mallampati scale class II Neurological: alert and oriented Last oral intake: >/= 8 hours ASA classification: III Emergent: no Anesthetic plan: proceed Anesthesia type and monitoring: general GIVS and standard monitoring Results Review: All pre-operative results and documents have been reviewed as part of the pre-operative evaluation. Informed Consent: The patient's anesthetic plan and its attendant risks and benefits were discussed with the patient/family/POA. Questions were solicited and answers provided to the satisfaction of the patient/family/POA.
--- NOTE | 2024-12-01 08:56 | PM.IMHP ---
H&P: HPI History of Present Illness Date/Time: 12/01/24 08:56 Chief Complaint: Screening colonoscopy Narrative: This is the patient's second colonoscopy after 10 years. There are no GI symptoms and there is no family history of colorectal cancer. Review of Systems Review of Systems: All systems reviewed & are unremarkable except as noted in HPI and below PMFSH Past Medical History Medical History Hypothyroidism Diabetes type 2, controlled Hypertension Hyperlipidemia Surgical History Surgical History History of tubal ligation Family History Family History Mother Melanoma Diabetes mellitus Hypertension Heart disease Social History Social History Smoking status: Never smoker Alcohol intake: current Substance use: never Substance use type: does not use Meds Home Medications and Allergies Home Medications ?Medication ?Instructions ?Recorded ?Confirmed ?Type lisinopril 20 mg tablet 20 mg PO DAILY 08/07/19 12/01/24 History meloxicam 7.5 mg tablet 7.5 mg PO DAILY 08/07/19 12/01/24 History pravastatin 40 mg tablet 40 mg PO DAILY 08/07/19 12/01/24 History subcutaneous insulin pump #1 ea 08/07/19 11/07/24 History levothyroxine 75 mcg tablet 0.05 mcg PO DAILY 02/26/23 12/01/24 History insulin aspart U-100 100 unit/mL 11/07/24 History subcutaneous solution (Novolog U-100 Insulin aspart) ondansetron HCl 4 mg tablet 4 mg PO Q6H PRN nausea and 11/19/24 Rx vomiting #4 tabs sodium,potassium,mag sulfates 17.5 See Rx Instructions PO .COMPLEX 11/19/24 Rx gram-3.13 gram-1.6 gram oral soln #354 mL (Suprep Bowel Prep Kit) Allergies Allergy/AdvReac Type Severity Reaction Status Date / Time No Known Allergies Allergy Unknown Verified 12/01/24 07:53 Vital Signs Vital Signs - 24 hr 12/01/24 07:56 Temperature 97.8 F Pulse Rate 78 Respiratory Rate 16 Blood Pressure 122/80 Pulse Oximetry 100 Oxygen Delivery Room Air Exam Const: General: cooperative and healthy appearing Resp: Effort & Inspection: normal respiratory effort and able to speak in complete sentences Auscultation: clear to auscultation bilaterally Cardio: Rate: regular rate Rhythm: regular rhythm GI: Inspection: normal to inspection GI Palp: No No hepatosplenomegaly present Auscultation: normal bowel sounds Rectal Exam: deferred Skin: General skin exam: normal color Psych: Appearance: grossly normal Mental Status: mental status grossly normal Assessment and Plan Assessment and plan (1) Encounter for screening colonoscopy: Code(s): Z12.11 - Encounter for screening for malignant neoplasm of colon Status: Acute Assessment and Plan: The patient is deemed a good candidate for the procedure. Consent signed. Will proceed.
[2024-12-01 09:32] VITALS: BP 106/59; PULSE 63; RESP 16; O2SAT 100
--- NOTE | 2024-12-01 09:33 | S_PTH ---
PATIENT: Jessy Valle LOC: [facility] Traore#:[id number] AGE/SX: 69/F ROOM: RE12/01/[address]: Gilberto Del Valle MD : 1955 BED: DIS: 12/01/2024 SPEC #: [id number] RECD: 12/01/24 10:24 STATUS: IGOR REQ #: [id number] DARIUSZ: 12/01/24 09:[address]: Gilberto Del Valle DEPT: [facility] Surgical RECD BY: Deidre Villarreal ENTERED: 12/01/24 10:24 SP TYPE: Surgical OTHR DR: Cornelio MasseyMD Tissues: A - Colon Polypectomy Procedures: Hematoxylin and Eosin Stain Gross and Microscopic Level 4
[2024-12-01 09:42] VITALS: BP 127/71; PULSE 62; RESP 16; O2SAT 100
[2024-12-01 09:52] VITALS: BP 130/68; PULSE 60; RESP 16; O2SAT 100
--- NOTE | 2024-12-01 10:03 | SUR.PHASEII ---
Blood sugar 125 per pt's cgm monitor.
== END 2024-12-01 09:58 | disposition home or self-care (01) ==
PROVIDERS: PCP Internal Medicine; Referring Provider Internal Medicine; Visit Provider Internal Medicine Gastroenterology
PROC: 0DJD8ZZ Inspection of Lower Intestinal Tract, Via Natural or Artificial Opening Endoscopic (ICD-10-PCS; CPT 45378; principal; 2024-12-01 09:00)
DX: Z12.11 Encounter for screening for malignant neoplasm of colon (principal); D12.5 Benign neoplasm of sigmoid colon; E03.9 Hypothyroidism, unspecified; E11.9 Type 2 diabetes mellitus without complications; I10 Essential (primary) hypertension; E78.5 Hyperlipidemia, unspecified; Z79.4 Long term (current) use of insulin; Z98.51 Tubal ligation status; Z80.8 Family history of malignant neoplasm of other organs or systems; Z82.49 Family history of ischemic heart disease and other diseases of the circulatory system
CPT/HCPCS: 45385; 88305; J2003; J2704; J7120

== ENCOUNTER 2025-01-02 11:58 | Outpatient (CLI) | payer MEDICARE, SELFPAY ==
--- NOTE | ~2025-01-02 | MM_ITS ---
EXAMINATION: MM screening ady BI w tiara HISTORY: Screening TECHNIQUE: Craniocaudal and mediolateral oblique 3-D tomosynthesis images were obtained and synthetic 2-D images were generated. CAD analysis was submitted and interpreted. COMPARISON: Comparison to multiple prior studies sequentially, with oldest reviewed study dated , 11/18/2018 BREAST PARENCHYMAL COMPOSITION: The breasts are heterogeneously dense, which may obscure small masses. FINDINGS: There is no evidence of suspicious mass, calcification, or architectural distortion to suggest malignancy in either breast. IMPRESSION: 1. No mammographic evidence of malignancy. 2. Recommend routine screening mammography in one year. BI-RADS Category 1: Negative Reviewed, dictated and finalized at location B.
== END 2025-01-02 11:59 | disposition home or self-care (01) ==
PROVIDERS: PCP Internal Medicine; Visit Provider Obstetrics & Gynecology
DX: Z12.31 Encounter for screening mammogram for malignant neoplasm of breast (principal)
CPT/HCPCS: 77063; 77067